=== PATIENT | male | born 1950 | race Caucasian/White ===

== ENCOUNTER 2020-09-26 08:06 | Emergency (ER) | payer MEDICARE, BC, SELFPAY ==
[2020-09-26 08:16] VITALS: BP 140/95; PULSE 121; RESP 16; TEMP 36.7; O2SAT 94; BMI 30.3
--- NOTE | 2020-09-26 08:29 | CT_ITS ---
WS: [id number] CT ABDOMEN AND PELVIS WITH CONTRAST HISTORY: nausea/diarrhea, intermittent abdominal pain TECHNIQUE: Imaging performed of the abdomen and pelvis with IV contrast. Single phase imaging of the abdomen. Coronal and sagittal reformats are submitted. All CT scans at [facility] use at least one of these dose optimization techniques: automated exposure control; mA and/or kV adjustment per patient size (includes targeted exams where dose is matched to clinical indication); or iterativ e reconstruction. IV CONTRAST: Omnipaque 300; 95 mL IV. Oral contrast: No DLP: 1764.72 mGy.cm COMPARISON: None available. Lower thorax: Lung bases are clear. Heart is normal size. Small hiatal hernia. Liver/biliary system: Liver is very mildly enlarged with changes of hepatic steatosis. Hypodense nodu le in the superior liver is probably a small cyst but really too small to characterize. Gallbladder: Numerous stones within a nondilated gallbladder. No adjacent inflammation. No bile duct dilatation. Pancreas: Normal size pancreas and pancreatic duct. No adjacent inflammation. Spleen: Normal size spleen. No mass or infarct. Adrenal glands: Normal. Right kidney: Normal size kidney. 2 cm cyst from the mid kidney. No hydronephrosis. Left kidney: Normal size kidney. Posterior exophytic cyst measures 4.1 cm. There is an additional sma ller cyst in the lower pole cortex. Aorta: Mild atherosclerosis with no aneurysm. Lymphadenopathy: None. Free fluid: None. GI tract: There is diffuse abnormality throughout the colon. Mucosal thickening and hyperemia. There is a more focal area of wall thickening at the junction of the descending colon and sigmoid. No obstr uction. No small bowel dilatation. Abdominal wall: Ventral abdominal wall hernia contains fat only. Pelvis: Nondistended urinary bladder. Diffuse bladder wall thickening. Bladder calcifications are pre sent. There is additional enlargement of the prostate gland with significant calcification. Small nod ular densities in the pelvis may be vessels are very small lymph nodes. Bones: Unremarkable. CT/CT abdomen pelvis w con* [id number] IMPRESSION: 1. Diffuse abnormality throughout the colon. Edema with hyperemia and pericolo ti inflammation which is mild. More focal wall thickening at the descending co cedric and sigmoid. Favor this is probably post infectious or inflammatory. Recomm end colonoscopy after treatment of this acute episode to reevaluate the more fo vale wall thickening in the descending and sigmoid colon. 2. Atherosclerosis aorta. 3. Cholelithiasis without acute cholecystitis. 4. Bilateral renal cysts. 5. Diffuse wall thickening of the urinary bladder and prostate enlargement wit h calcifications.
--- NOTE | 2020-09-26 08:31 | W.ED.NAVMDI ---
HPI - Nausea/Vomiting/Diarrhea General: Chief complaint: Nausea/Vomiting/Diarrhea Stated complaint: abd pain, diarrhea Time Seen by Provider: 09/26/20 08:09 Source: patient Mode of arrival: ambulatory Limitations: no limitations History of Present Illness: HPI Narrative: Patient is a nice 70-year-old male who presents to ED today with a complaint of abdominal pain, nausea, and diarrhea over the past 3 to 4 days. He states when symptoms initially began on Thursday he had 8-9 episodes of diarrhea. He states diarrhea initially appeared dark but over the past few days has turned watery. He is having lower intermittent abdominal cramping. He states he had 3-4 episodes of diarrhea on Thursday. Thursday he felt like he may be improving and states he had 3 episodes throughout the day. States he woke up this morning around 2 AM with several episodes of diarrhea and abdominal pain. Patient is fully vaccinated for COVID. He has not had any vomiting. No fevers. No sick contacts. Previous abdominal surgeries include an appendectomy. MD elicited complaint: nausea, diarrhea and abdominal pain Onset (ago): day(s) (3-4d) Description of diarrhea: watery and semi-solid Associated nausea: Yes Associated abdominal pain: Yes Location of pain: Other (lower) Pain consistency: intermittent Severity: moderate Quality: cramping Exacerbating factors: eating Relieving factors: bowel movement Associated symtoms: Reports nausea; Denies change in vision, chest pain, dysuria, fatigue, fecal incontinence, headache(s) or malaise Review of Systems Const: Reports: change in appetite; Denies: fever(s), chills, body aches, change in weight, fatigue or malaise Eyes: Denies: change in vision ENMT: Denies: throat pain or odynophagia Card: Denies: chest pain Resp: Denies: dyspnea GI: Reports: abdominal pain, nausea, diarrhea and GI cramping; Denies: vomiting, hematemesis, fecal incontinence, rectal pain, rectal swelling, hematochezia, melena or white/light colored stool : Denies: flank pain or dysuria Musc: Denies: back pain Skin/Breast: Denies: rash Neuro: Denies: headache(s) PFS ED PFSH: Social History (Updated 09/26/20 @ 08:21 by Khoi Billingsley RN) Smoking and tobacco status: current every day smoker cigarettes Packs smoked per day: 1 Alcohol intake: current Alcohol intake frequency: 0-2 Drinks per Day Physical Exam Const: COMMON NORMALS: no acute distress, patient oriented x3, no limitations and alert GENERAL APPEARANCE: cooperative NUTRITIONAL APPEARANCE: overweight ORIENTATION/CONSCIOUSNESS: Yes awake, Yes oriented to person, Yes oriented to place and Yes oriented to time HENMT: COMMON NORMALS: normocephalic and atraumatic HEAD & SCALP: normocephalic and atraumatic Resp: COMMON NORMALS: normal respiratory effort and clear to auscultation bilaterally AUSCULTATION: clear to auscultation bilaterally Cardio: COMMON NORMALS: regular rhythm RATE: tachycardic RHYTHM: regular rhythm GI: COMMON NORMALS: Normal to inspection, nondistended, normoactive bowel sounds present, Soft to palpation, No hepatosplenomegaly present and no masses INSPECTION: Yes normal to inspection AUSCULTATION: Yes normoactive bowel sounds PALPATION: Yes Soft to palpation, Yes Tenderness to palpation present (GI) (mild lower abdomen) and Yes No hepatosplenomegaly present : COMMON NORMALS: Yes no CVA tenderness BLADDER/KIDNEY EXAM: Yes no CVA tenderness Back/Pelvis: COMMON NORMALS: no CVA tenderness Extremity: COMMON NORMALS: normal to inspection Neuro: COMMON NORMALS: patient oriented x3 SENSORIUM/ORIENTATION: Yes alert, Yes oriented to person, Yes oriented to place and Yes oriented to time Skin: COMMON NORMALS: no rashes or lesions noted GENERAL SKIN EXAM: no rashes or lesions noted Course Vital Signs: Vital signs: Vital Signs Temperature 98.5 F 09/26/20 09:20 Pulse Rate 99 09/26/20 10:49 Respiratory Rate 16 09/26/20 10:49 Blood Pressure 121/73 09/26/20 10:49 Pulse Oximetry 94 09/26/20 10:49 MDM - Nausea/Vomiting/Diarrhea MDM Narrative: Medical decision making narrative: Patient is nonill and nontoxic appearing. He was initially tachycardic but this has resolved after fluids. Labs overall appear unremarkable. He has a normal white count. CT scan showing diffuse abnormality/edema through his colon. Radiologist did recommend a colonoscopy after treatment of his acute episode. He tells me his last colonoscopy was 2 years ago and normal. Recommend he follow-up with PCP to see if he needs referred to a general surgeon for repeat. CT scan showed cholelithiasis but there was no evidence for acute cholecystitis. His LFTs are normal. CT scan showed some bladder wall thickening as well as an enlarged prostate. UA does show hematuria, trace leuks, 0-4 WBCs. It was contaminated with 10-15 squamous cells. Patient is being placed on pain/nausea medications as well as Cipro and Flagyl for the colitis. Cipro should cover for any urinary infection however I do not have any clinical suspicion for this. Strict return to ED precautions given regarding worsening pain, diarrhea, repetitive episodes of vomiting, inability to hold down antibiotics, or fevers. Otherwise he will follow up with Dr. Burgos. Lab Data: Labs: Lab Results 09/26/20 09/26/20 09/26/20 Range/Units 09:09 09:09 09:19 WBC 4.8 (4.0-10.0) 10^3/ uL RBC 4.66 (4.1-5.3) 10^6/u L Hgb 15.2 (11.7-16.6) g/dL Hct 44.0 (42.0-52.0) % MCV 94.4 H (80-94) fL MCH 32.6 (28.0-34.0) pg MCHC 34.5 (30.0-36.0) g/dL RDW 11.9 L (12.1-15.1) % Plt Count 200 (130-400) 10^3/c mm MPV 9.7 (7.4-10.4) fL Neut % (Auto) 77.5 % Lymph % (Auto) 13.8 % [place] % (Auto) 6.9 % Eos % (Auto) 0.6 % Baso % (Auto) 1.0 % Neut # (Auto) 3.70 (1.8-7.7) 10^3/u L Lymph # (Auto) 0.7 L (0.8-4.8) 10^3/u L [place] # (Auto) 0.3 (0.2-0.9) 10^3/u L Eos # (Auto) 0.0 (0.0-0.8) 10^3/u L Baso # (Auto) 0.1 (0.0-0.1) 10^3/u L Nucleated RBC % (a uto) 0 % Nucleated RBCs # 0.0 /100WBC Sodium 137 (136-145) mmol/L Potassium 4.1 (3.5-5.1) mmol/L Chloride 101 (98-107) mmol/L Carbon Dioxide 22 (22-29) mmol/L Anion Gap 18.1 (5-19) BUN 14 (8-23) mg/dL Creatinine 0.8 (0.7-1.2) mg/dL GFR Calculation Not Reportable Glucose 124 H (65-115) mg/dL Calculated Osmolal ity 286 (285-295) mOsm/k g Calcium 8.4 L (8.5-10.5) mg/dL Total Bilirubin 0.5 (0.15-1.2) mg/dL AST 14 (0-40) U/L ALT 13 (0-41) U/L Alkaline Phosphata se 64 (40-130) IU/L Total Protein 6.7 (6.6-8.7) g/dL Albumin 4.1 (3.5-5.2) g/dL Globulin 2.6 (1.3-4.6) g/dL Lipase 29 (13-60) U/L Urine Color (Yellow) Urine Appearance (CLEAR) Urine pH (5-7) Ur Specific Gravit y (1.005-1.030) Urine Protein (Negative) Urine Glucose (UA) (Normal) Urine Ketones (Negative) Urine Blood (Negative) Urine Nitrate (Negative) Urine Bilirubin (Negative) Urine Urobilinogen (Negative) mg/dL Ur Leukocyte Heather ase (Negative) Urine RBC (0-2) /hpf Urine WBC (0-5) /hpf Ur Squamous Epith Cells (0-5) /hpf Amorphous Sediment Urine Bacteria (NONE) /hpf Urine Mucus /hpf SARS-CoV-2 Ag (Rap id) Negative (Negative) 09/26/20 Range/Units 09:40 WBC (4.0-10.0) 10^3/ uL RBC (4.1-5.3) 10^6/u L Hgb (11.7-16.6) g/dL Hct (42.0-52.0) % MCV (80-94) fL MCH (28.0-34.0) pg MCHC (30.0-36.0) g/dL RDW (12.1-15.1) % Plt Count (130-400) 10^3/c mm MPV (7.4-10.4) fL Neut % (Auto) % Lymph % (Auto) % [place] % (Auto) % Eos % (Auto) % Baso % (Auto) % Neut # (Auto) (1.8-7.7) 10^3/u L Lymph # (Auto) (0.8-4.8) 10^3/u L [place] # (Auto) (0.2-0.9) 10^3/u L Eos # (Auto) (0.0-0.8) 10^3/u L Baso # (Auto) (0.0-0.1) 10^3/u L Nucleated RBC % (a uto) % Nucleated RBCs # /100WBC Sodium (136-145) mmol/L Potassium (3.5-5.1) mmol/L Chloride (98-107) mmol/L Carbon Dioxide (22-29) mmol/L Anion Gap (5-19) BUN (8-23) mg/dL Creatinine (0.7-1.2) mg/dL GFR Calculation Glucose (65-115) mg/dL Calculated Osmolal ity (285-295) mOsm/k g Calcium (8.5-10.5) mg/dL Total Bilirubin (0.15-1.2) mg/dL AST (0-40) U/L ALT (0-41) U/L Alkaline Phosphata se (40-130) IU/L Total Protein (6.6-8.7) g/dL Albumin (3.5-5.2) g/dL Globulin (1.3-4.6) g/dL Lipase (13-60) U/L Urine Color Yellow (Yellow) Urine Appearance Hazy A (CLEAR) Urine pH 5 (5-7) Ur Specific Gravit y 1.020 (1.005-1.030) Urine Protein 1+ H (Negative) Urine Glucose (UA) Norm (Normal) Urine Ketones Negative (Negative) Urine Blood 3+ H (Negative) Urine Nitrate Negative (Negative) Urine Bilirubin 1+ H (Negative) Urine Urobilinogen 1 H (Negative) mg/dL Ur Leukocyte Heather ase Trace H (Negative) Urine RBC 15-25 H (0-2) /hpf Urine WBC 0-4 H (0-5) /hpf Ur Squamous Epith Cells 10-15 H (0-5) /hpf Amorphous Sediment Not Reportable Urine Bacteria 1+ H (NONE) /hpf Urine Mucus 1+ /hpf SARS-CoV-2 Ag (Rap id) (Negative) Imaging Data^: CT Abd/Pel: Radiologist's impression: [address] [id number] Scan ReportSigned Patient: Lloyd Crystal #: [id number]: 9Acct#:[id number]/Sex: 70 / MADM Date: 09/26/20Loc: ERRoom/Bed:Attending Dr: Ordering Provider/Ordering MD: Mariela Alves Date of Service: 09/26/20 Procedure(s): CT abdomen pelvis w con* [id number] Accession Number(s): [id number] Report Number: [id number] WS: [id number] CT ABDOMEN AND PELVIS WITH CONTRAST HISTORY: nausea/diarrhea, intermittent abdominal pain TECHNIQUE: Imaging performed of the abdomen and pelvis with IV contrast. Single phase imaging of the abdomen. Coronal and sagittal reformats are submitted. All CT scans at [facility] use at least one of these dose optimization techniques: automated exposure control; mA and/or kV adjustment per patient size (includes targeted exams where dose is matched to clinical indication); or iterative reconstruction. IV CONTRAST: Omnipaque 300; 95 mL IV. Oral contrast: No DLP: 1764.72 mGy.cm COMPARISON: None available. Lower thorax: Lung bases are clear. Heart is normal size. Small hiatal hernia. Liver/biliary system: Liver is very mildly enlarged with changes of hepatic steatosis. Hypodense nodule in the superior liver is probably a small cyst but really too small to characterize. Gallbladder: Numerous stones within a nondilated gallbladder. No adjacent inflammation. No bile duct dilatation. Pancreas: Normal size pancreas and pancreatic duct. No adjacent inflammation. Spleen: Normal size spleen. No mass or infarct. Adrenal glands: Normal. Right kidney: Normal size kidney. 2 cm cyst from the mid kidney. No hydronephrosis. Left kidney: Normal size kidney. Posterior exophytic cyst measures 4.1 cm. There is an additional smaller cyst in the lower pole cortex. Aorta: Mild atherosclerosis with no aneurysm. Lymphadenopathy: None. Free fluid: None. GI tract: There is diffuse abnormality throughout the colon. Mucosal thickening and hyperemia. There is a more focal area of wall thickening at the junction of the descending colon and sigmoid. No obstruction. No small bowel dilatation. Abdominal wall: Ventral abdominal wall hernia contains fat only. Pelvis: Nondistended urinary bladder. Diffuse bladder wall thickening. Bladder calcifications are present. There is additional enlargement of the prostate gland with significant calcification. Small nodular densities in the pelvis may be vessels are very small lymph nodes. Bones: Unremarkable. CT/CT abdomen pelvis w con* [id number] IMPRESSION: 1. Diffuse abnormality throughout the colon. Edema with hyperemia and pericolonic inflammation which is mild. More focal wall thickening at the descending colon and sigmoid. Favor this is probably post infectious or inflammatory. Recommend colonoscopy after treatment of this acute episode to reevaluate the more focal wall thickening in the descending and sigmoid colon. 2. Atherosclerosis aorta. 3. Cholelithiasis without acute cholecystitis. 4. Bilateral renal cysts. 5. Diffuse wall thickening of the urinary bladder and prostate enlargement with calcifications. Dictated By:Anna Patel DOSigned By:Anna Patel DOSigned Date/Time:09/26/20 1032DD/ 1012 Discharge Plan Discharge Patient Disposition: Home Clinical Impression: Colitis Condition: Stable Prescriptions: New hydrocodone-acetaminophen 5-325 mg tablet 1 tab PO Q6H PRN (Reason: pain) Qty: 14 RF: 0 Zofran 4 mg tablet 4 mg PO Q6H PRN (Reason: nausea and vomiting) Qty: 14 RF: 0 Flagyl 500 mg tablet 500 mg PO BID 7 Days Qty: 14 RF: 0 Cipro 500 mg tablet 500 mg PO Q12H Qty: 14 RF: 0 Discharge Orders: Discharge ED (Routine); Ordered 09/26/20 Ordered By: Mariela Alves Patient Instructions: Infectious Colitis (ED) Activity Restrictions/Additional Instructions: As we discussed you have severe inflammation throughout your colon. Please start your antibiotics immediately. You need to return to the emergency department for worsening pain, fevers greater than 100.4, inability to hold down your antibiotics, repetitive episodes of vomiting, severe bloody diarrhea, or any other concerns you may have. Otherwise please follow-up with Dr. Burgos as soon as possible. Coding Level of Care Code ED Long Goods Drier for Chg Fwd Exam Comprehensive
[2020-09-26 09:15] LABS: Basophils # 0.1 10^3/uL (0.0-0.1); Eosinophils % 0.6 %; Hemoglobin 15.2 g/dL (11.7-16.6); Lymphocytes # 0.7 10^3/uL (0.8-4.8); Lymphocytes % 13.8 %; Mean Corpuscular HGB Conc 34.5 g/dL (30.0-36.0); Mean Corpuscular Hemoglobin 32.6 pg (28.0-34.0); Mean Corpuscular Volume 94.4 fL (80-94); Mean Platelet Volume 9.7 fL (7.4-10.4); Monocytes # 0.3 10^3/uL (0.2-0.9); Monocytes % 6.9 %; Neutrophils % 77.5 %; Nucleated Red Blood Cells % 0 %; Platelet Count 200 10^3/cmm (130-400); Red Blood Count 4.66 10^6/uL (4.1-5.3); Red Cell Distribution Width 11.9 % (12.1-15.1); White Blood Count 4.8 10^3/uL (4.0-10.0)
[2020-09-26 09:20] VITALS: BP 111/61; PULSE 103; RESP 24; TEMP 36.9; O2SAT 95
[2020-09-26 09:44] LABS: Alanine Aminotransferase 13 U/L (0-41); Albumin Level 4.1 g/dL (3.5-5.2); Alkaline Phosphatase 64 IU/L (40-130); Anion Gap 18.1 (5-19); Aspartate Amino Transferase 14 U/L (0-40); Blood Urea Nitrogen 14 mg/dL (8-23); Calcium 8.4 mg/dL (8.5-10.5); Carbon Dioxide 22 mmol/L (22-29); Chloride 101 mmol/L (98-107); Creatinine Clr Calc Pharmacy 105.8609; Globulin 2.6 g/dL (1.3-4.6); Glucose 124 mg/dL (65-115); Lipase 29 U/L (13-60); Osmolality Calculated 286 mOsm/kg (285-295); Potassium 4.1 mmol/L (3.5-5.1); Sodium 137 mmol/L (136-145); Total Bilirubin 0.5 mg/dL (0.15-1.2); Total Protein 6.7 g/dL (6.6-8.7)
[2020-09-26 09:52] LABS: Add Urine Microscopic? YES; Bilirubin Urine 1+ (Negative); Blood Urine 3+ (Negative); Glucose Urine UA Norm (Normal); Ketones Urine Negative (Negative); Leukocyte Esterase Urine Trace (Negative); Nitrate Urine Negative (Negative); Protein Urine 1+ (Negative); Urine Appearance Hazy (CLEAR); Urine Color Yellow (Yellow); Urobilinogen Urine 1 mg/dL (Negative); pH Urine 5 (5-7)
[2020-09-26 09:53] LABS: Add Urine Culture? Yes; Bacteria Urine 1+ /hpf; Mucus Urine 1+ /hpf; RBC Urine 15-25 /hpf (0-2); WBC Urine 0-4 /hpf (0-5)
[2020-09-26] MEDS: sodium chloride 0.9% 1,000 ML 999 ML IV (09:55)
[2020-09-26 09:56] LABS: SARS Covid-2 Antigen Negative (Negative)
[2020-09-26] MEDS: iohexol 300 mg/mL 100 mL Btl IV (10:00)
[2020-09-26 10:49] VITALS: BP 121/73; PULSE 99; RESP 16; O2SAT 94
== END 2020-09-26 11:11 | disposition home or self-care (01) ==
PROVIDERS: Emergency Provider Physician Assistant
DX: K52.9 Noninfective gastroenteritis and colitis, unspecified (principal); F17.210 Nicotine dependence, cigarettes, uncomplicated
CPT/HCPCS: 74177; 80053; 81001; 83690; 85025; 87086; 87426; 96360; 99283; J7030; Q9967

== ENCOUNTER 2020-12-24 09:34 | Outpatient (CLI) | payer MEDICARE, BC, SELFPAY ==
--- NOTE | 2020-12-24 09:50 | XR_ITS ---
WS: [id number] Right forearm, AP and lateral views, 12/24/2020 Clinical Data: R FOREARM PAIN Comparison: None. Findings: No fractures or dislocations are seen. The soft tissues are normal. The visualized right wrist and el bow show no obvious abnormalities. There is an orthopedic plate at the biceps tubercle from surgery. XR/XR forearm RT 2V [id number] Impression: 1. Surgery at the biceps tubercle of the proximal right radius. 2. Negative right forearm.
== END 2020-12-24 09:35 | disposition home or self-care (01) ==
PROVIDERS: PCP Family Medicine; Visit Provider Family Medicine
DX: M79.631 Pain in right forearm (principal)
CPT/HCPCS: 73090

== ENCOUNTER → 2021-02-12 15:46 | Outpatient (BNVA) | payer MEDICARE, BC, SELFPAY | PROVIDERS: PCP Family Medicine; Visit Provider Surgery | DX: Z20.822 Contact with and (suspected) exposure to COVID-19 (principal) | CPT/HCPCS: 87635 ==

== ENCOUNTER 2021-02-14 10:36 | Day surgery (SDC) | payer MEDICARE, BC, SELFPAY ==
[2021-02-12 09:36] VITALS: BMI 30.3
--- NOTE | 2021-02-14 11:13 | ANES.PREANE2 ---
Pre-Anesthetic Assessment Pre-Anesthetic Assessment: Height/Weight: Height 1.85 m Weight 104.326 kg Preop Diagnosis: diagnostic Proposed Procedure: Operation Date: 02/14/21 12:00 Proposed Procedures p Colonoscopy 30601 K52.9(Not Applicable) - Hieu Pino MD Was Beta Jose taken within 24 hours: N/A Was Clonidine taken within 24 hours: N/A Social: Social History: Alcohol and Tobacco Exam: Pre-Anes Outpt Exam: alert, oriented x 3, clear to auscultation bilaterally and regular rate & rhythm Airway: Submandibular: WNL Cervical ROM: WNL MP: 2 Pulmonary: Pulmonary: COPD CV/HEM: CV/HEM: HTN : : None reported Hepatic: Hepatic: None reported GI: GI: GERD Metabolic: Metabolic: Hyperlipidemia and Thyroid Musc/skel: Musc/skel: None reported Neuropsych: Neuropsych: None reported Anesthetic Plan: ASA status: 3 Anesthesia: MAC PFSH Anesthesia PFSH: Medical History (Updated 01/04/21 @ 16:27 by Hieu Pino MD) Diabetes mellitus Dyslipidemia GERD (gastroesophageal reflux disease) Hypertension Hypothyroidism Surgical History (Updated 01/04/21 @ 15:25 by Hieu Pino MD) History of surgery on arm tendon repair Hx of appendectomy Status post colonoscopy Family History (Updated 01/04/21 @ 15:14 by Lucrecia Abarca MA) Other Cancer Social History (Updated 09/26/20 @ 08:21 by Khoi Billingsley RN) Smoking and tobacco status: current every day smoker cigarettes Packs smoked per day: 1 Alcohol intake: current Alcohol intake frequency: 0-2 Drinks per Day Data Anesthesia Cardiac Studies: No Data to Display
[2021-02-14 11:33] VITALS: BP 156/100; PULSE 85; RESP 18; TEMP 36.3; O2SAT 98
[2021-02-14 11:46] VITALS: BP 156/100; PULSE 85; RESP 18; TEMP 36.3; O2SAT 98
[2021-02-14] MEDS: sodium chloride 0.9% 1,000 ML 30 ML IV (11:52)
--- NOTE | 2021-02-14 14:18 | W.PM.OPSFHP ---
Same Day Surgery H&P Indication for Procedure/HPI DATE OF PROCEDURE: February 14, 2021 CHIEF COMPLAINT/INDICATIONFOR SURGICAL PROCEDURE: colonoscopy PREOP DIAGNOSIS: diagnostic PLANNED PROCEDRUE: Operation Date: 02/14/21 12:00 Proposed Procedures p Colonoscopy 07815 K52.9(Not Applicable) - Hieu Pino MD Medications/Allergies* Home Medications Medication Instructions Recorded Confirmed Type fenofibrate 160 mg PO DAILY 02/12/21 02/12/21 History levothyroxine [Synthroid] 150 mcg PO DAILY 02/12/21 02/12/21 History lisinopril 20 mg PO DAILY 02/12/21 02/12/21 History pantoprazole 40 mg PO DAILY 02/12/21 02/12/21 History rosuvastatin 40 mg PO DAILY 02/12/21 02/12/21 History Allergies/Adverse Reactions Allergy/AdvReac Type Severity Reaction Status Date / Time No Known Allergies Allergy Verified 02/14/21 11:45 Current Medications: Generic Name Dose Route Start Last Admin Trade Name Freq PRN Reason Stop Dose Admin Sodium Chloride 1,000 mls @ 30 mls/hr 02/14/21 11:00 02/14/21 11:52 Sodium Chloride 0.9% IV 02/15/21 10:59 30 mls/hr .Q24H KARYN Administration Pertinent History/Comorbid Conditions* Medical History (Updated 01/04/21 @ 16:27 by Hieu Pino MD) Diabetes mellitus Dyslipidemia GERD (gastroesophageal reflux disease) Hypertension Hypothyroidism Surgical History (Updated 01/04/21 @ 15:25 by Hieu Pino MD) History of surgery on arm tendon repair Hx of appendectomy Status post colonoscopy Family History (Updated 01/04/21 @ 15:14 by Lucrecia Abarca MA) Cancer Social History Smoking and tobacco status: current every day smoker cigarettes Packs smoked per day: 1 Alcohol intake: current Alcohol intake frequency: 0-2 Drinks per Day Pertinent Exam Findings alert, oriented x 3 and regular rate & rhythm Recommendations Surgery/Procedure today Coding Level of Care Code Acute Pharmacy Intake Coordinator for Johnnie Rivera
[2021-02-14 14:58] VITALS: BP 112/85; PULSE 82; RESP 16; TEMP 36.4; O2SAT 100
--- NOTE | 2021-02-14 15:00 | ANE.PACU2 ---
Inpatient post-anesthesia follow up: Airway intact: Yes Vital signs: Temperature 97.3 F Pulse Rate 85 Respiratory Rate 18 Blood Pressure 156/100 Pulse Oximetry 98 Oxygen Delivery Me thod Room Air Oxygen Flow Rate Fraction of Inspir ed Oxygen Hydration adequate: Yes Nausea and vomiting: No Pain level: 1 Mental status: Baseline
[2021-02-14 15:11] VITALS: BP 124/76; PULSE 81; RESP 17; O2SAT 97
== END 2021-02-14 15:14 | disposition home or self-care (01) ==
PROVIDERS: PCP Family Medicine; Visit Provider Surgery
PROC: 0DJD8ZZ Inspection of Lower Intestinal Tract, Via Natural or Artificial Opening Endoscopic (ICD-10-PCS; CPT 45378; principal; 2021-02-14 12:00)
DX: Z12.11 Encounter for screening for malignant neoplasm of colon (principal); K57.30 Diverticulosis of large intestine without perforation or abscess without bleeding; K64.8 Other hemorrhoids; J44.9 Chronic obstructive pulmonary disease, unspecified; I10 Essential (primary) hypertension; K21.9 Gastro-esophageal reflux disease without esophagitis; E78.5 Hyperlipidemia, unspecified; E03.9 Hypothyroidism, unspecified; E11.9 Type 2 diabetes mellitus without complications; F17.210 Nicotine dependence, cigarettes, uncomplicated
CPT/HCPCS: 45380; 88305; 96360; J2704; J7030

== ENCOUNTER 2021-03-18 13:43 | Emergency (ER) | payer OTHER, MEDICARE, BC, SELFPAY ==
[2021-03-18 13:59] VITALS: BP 158/82; PULSE 91; RESP 14; O2SAT 95; BMI 29.7
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
[2021-03-18] MEDS: ondansetron 2 mg/ML SDV 2 mL 4 MG IM (15:59)
[2021-03-18] MEDS: morphine 4 mg/mL SDV 1 mL IM (16:00)
[2021-03-18 16:47] VITALS: BP 170/87; PULSE 79; RESP 17; O2SAT 96
--- NOTE | 2021-03-20 10:49 | DCPLANNER ---
integrity manager had message to schedule a follow up appointment for patient with ortho. integrity manager called the ortho clinic, spoke with Mary Alice, gave clinic patients information. integrity manager was told that patients information would be printed and reviewed. Clinic will call patient with appointment information.
--- NOTE | 2021-03-22 07:36 | DCPLANNER ---
Patient had a follow up appointment scheduled for 03.20.[address] at [facility] - patient did attend appointment.
== END 2021-03-18 16:49 | disposition home or self-care (01) ==
PROVIDERS: Emergency Provider Physician Assistant; PCP Family Medicine
DX: S92.001A Unspecified fracture of right calcaneus, initial encounter for closed fracture (principal); E11.9 Type 2 diabetes mellitus without complications; E78.5 Hyperlipidemia, unspecified; I10 Essential (primary) hypertension; F17.210 Nicotine dependence, cigarettes, uncomplicated; V89.2XXA Person injured in unspecified motor-vehicle accident, traffic, initial encounter
CPT/HCPCS: 29515; 73610; 73630; 96372; 99283; J2270; J2405

== ENCOUNTER → 2021-03-20 15:16 | Outpatient (BNVA) | payer MEDICARE, BC, SELFPAY | PROVIDERS: PCP Family Medicine; Referring Provider Family Medicine; Visit Provider Podiatrist Foot & Ankle Surgery | DX: M79.672 Pain in left foot (principal); M19.072 Primary osteoarthritis, left ankle and foot | CPT/HCPCS: 73630 ==

== ENCOUNTER 2021-03-28 09:56 | Outpatient (CLI) | payer OTHER, MEDICARE, BC, SELFPAY ==
--- NOTE | 2021-03-28 10:00 | CT_ITS ---
WS: [id number] NONCONTRAST CT OF THE RIGHT FOOT TECHNIQUE: Noncontrast CT of the right foot with coronal and sagittal reformatted images. CLINICAL INFORMATION: surgical planning COMPARISON: None. DLP: 90.[address] scans at [facility] use at least one of these dose optimization techniques: automated e xposure control; mA and/or kV adjustment per patient size (includes targeted exams where dose is matc hed to clinical indication); or iterative reconstruction. FINDINGS: Noncontrast CT of the right foot. Extensive comminuted fracture involving the calcaneus corresponds t o findings on the recent radiograph. Involvement of the anterior,middle, and posterior subtalar facet . Fracture extends posteriorly to involve the posterior process of the calcaneus. Sustentaculum ramin appears intact. Fracture involves the anterior process of the calcaneus with disruption of the calcan eal cuboid joint. Cuboid appears intact. Talus appears intact. Normal medial and lateral malleolus. N ormal tibiotalar joint. Normal tibial plafond. Base of the fifth metatarsal appears normal. Metatarsa ls appear normal. Normal navicular. Normal cuneiforms. Soft tissue edema. CT/CT foot RT wo con* [id number] IMPRESSION: 1. Extensive comminuted fracture of the calcaneus involving the anterior, midd le and posterior subtalar facets with extension to the posterior process of the calcaneus described above 2. Involvement of the anterior process of the calcaneus with disruption of the calcaneal cuboid joint
== END 2021-03-28 09:57 | disposition home or self-care (01) ==
LOC: RADWPI 10:00
PROVIDERS: PCP Family Medicine; Visit Provider Podiatrist Foot & Ankle Surgery
DX: S92.001A Unspecified fracture of right calcaneus, initial encounter for closed fracture (principal); X58.XXXA Exposure to other specified factors, initial encounter
CPT/HCPCS: 73700

== ENCOUNTER 2021-04-02 14:48 | Outpatient (CLI) | payer OTHER, MEDICARE, BC, SELFPAY | END 2021-04-02 14:49 | disposition home or self-care (01) | LOC: SPT 14:49 | PROVIDERS: PCP Family Medicine; Visit Provider Podiatrist Foot & Ankle Surgery | DX: Z46.89 Encounter for fitting and adjustment of other specified devices (principal); S92.001D Unspecified fracture of right calcaneus, subsequent encounter for fracture with routine healing; X58.XXXD Exposure to other specified factors, subsequent encounter | CPT/HCPCS: 97760; L4361 ==

== ENCOUNTER → 2021-04-16 15:12 | Outpatient (BNVA) | payer BC, MEDICARE, SELFPAY | PROVIDERS: PCP Family Medicine; Visit Provider Podiatrist Foot & Ankle Surgery | DX: S92.001A Unspecified fracture of right calcaneus, initial encounter for closed fracture (principal); X58.XXXA Exposure to other specified factors, initial encounter | CPT/HCPCS: 73650 ==

== ENCOUNTER → 2021-04-30 15:35 | Outpatient (BNVA) | payer MEDICARE, BC, SELFPAY | PROVIDERS: PCP Family Medicine; Visit Provider Podiatrist Foot & Ankle Surgery | DX: S92.001A Unspecified fracture of right calcaneus, initial encounter for closed fracture (principal); X58.XXXA Exposure to other specified factors, initial encounter | CPT/HCPCS: 73650 ==

== ENCOUNTER 2021-05-17 21:23 | Emergency (ER) | payer MEDICARE, BC, SELFPAY ==
[2021-05-17 21:34] VITALS: BP 174/82; PULSE 107; RESP 20; TEMP 37.3; O2SAT 95; BMI 30.3
--- NOTE | 2021-05-17 21:59 | XRR_ITS ---
PROCEDURE INFORMATION: Exam: XR Chest Exam date and time: 05/17/2021 9:59 PM Age: 70 years old Clinical indication: Dyspnea TECHNIQUE: Imaging protocol: XR of the chest. Views: 1 view. COMPARISON: CT abdomen pelvis w con* [id number] 09/26/2020 10:00 AM FINDINGS: Lungs: Mild atelectasis at the lung bases. No consolidative pulmonary infiltrate noted. Pleural spaces: No pleural effusion. No pneumothorax. Heart/Mediastinum: No cardiomegaly demonstrated. Vasculature: Mildly tortuous, atherosclerotic thoracic aorta. Bones/joints: Unremarkable. XR/XR chest 1V portable [id number] IMPRESSION: Mild atelectasis at the lung bases. No consolidative pulmonary infiltrate noted.
--- NOTE | 2021-05-17 21:59 | CTR_ITS ---
PROCEDURE INFORMATION: Exam: CT Abdomen And Pelvis With Contrast Exam date and time: 05/17/2021 9:59 PM Age: 70 years old Clinical indication: Abdominal pain; Localized; Left; Prior surgery; Surgery date: 6+ months; Surgery type: Appy; Patient HX: C/O L sided abd pain x 2 days TECHNIQUE: Imaging protocol: Computed tomography of the abdomen and pelvis with contrast. Radiation optimization: All CT scans at this facility use at least one of these dose optimization techniques: automated exposure control; mA and/or kV adjustment per patient size (includes targeted exams where dose is matched to clinical indication); or iterative reconstruction. Contrast material: OMNI 300; Contrast volume: 95 ml; Contrast route: INTRAVENOUS (IV); COMPARISON: CT abdomen pelvis w con* [id number] 09/26/2020 10:00 AM RADIATION DOSE METRICS: Total DLP (mGy-cm): 1853.05 FINDINGS: Lungs: Mild atelectasis versus infiltrate at the lung bases. Liver: 5 mm simple appearing hepatic cyst. No acute hepatic abnormality. Gallbladder and bile ducts: Multiple gallstones in the gallbladder. There are no secondary signs of cholecystitis. Pancreas: The pancreas is normal in appearance. No pancreatic duct dilatation. Spleen: The spleen is normal in size and appearance. Adrenal glands: The adrenal glands appear within normal limits. Kidneys and ureters: The kidneys are normal in morphology. No hydronephrosis. No solid mass. Bilateral simple appearing renal cysts measuring up to 4 cm in diameter. No solid renal mass. No hydronephrosis. Ureters appear unremarkable. Stomach and bowel: No acute gastric abnormality demonstrated. No acute abnormality/inflammatory change of the colon. Appendix: Postop changes near the cecum, consistent with appendectomy. Intraperitoneal space: No pneumoperitoneum. No significant fluid collection. Vasculature: The aorta is atherosclerotic. No aortic aneurysm. Lymph nodes: Shotty bilateral inguinal lymph nodes measuring up to 1.8 cm in length. Urinary bladder: Mild diffuse mural thickening of the urinary bladder. There is a 7 mm calcification in the dependent portion of the urinary bladder, consistent with a bladder calculus. Reproductive: Enlarged prostate gland. Prostate gland measures 5.3 x 5.7 x 5.2 cm. Bones/joints: No fracture or other acute osseous abnormality. Degenerative spine changes are noted. Soft tissues: The abdominal wall demonstrates a small umbilical hernia, containing only fat. CT/CT abdomen pelvis w con* [id number] IMPRESSION: 1. Multiple gallstones in the gallbladder. There are no secondary signs of cholecystitis. 2. There is a 7 mm calcification in the dependent portion of the urinary bladder, consistent with a bladder calculus. Similar finding noted on 09/26/2020. 3. Enlarged prostate gland. Prostate gland measures 5.3 x 5.7 x 5.2 cm. 4. Mild atelectasis versus infiltrate at the lung bases. This is new when compared to 09/26/2020. 5. No additional new findings when compared to 09/26/2020. COMMENTS: Consistent with the [employer] [employer]'s Incidental Findings Committee white paper (J Am Cee Radiol 2018): Any incidental renal lesion less than 1 cm or classified as too small to characterize, or any incidental cystic renal lesion characterized as simple-appearing, is likely benign. No follow-up imaging is recommended for these lesions per consensus recommendations based on imaging criteria.
--- NOTE | 2021-05-17 22:00 | W.ED.ABDPA2 ---
Documented by User: LUIS Velasquez 05/18/21 00:57 HPI - Abdominal Pain General: Chief Complaint: Abdominal Pain Stated Complaint: Lt Side ABD Pain Time Seen by Provider: 05/17/21 21:58 History of Present Illness: 70-year-old male patient comes in today with complaints of abdominal discomfort. Patient reports for the last 2 days he has had left lower quadrant abdominal pain that radiates into left upper quadrant. Patient reports it feels like it goes up under his rib. Patient's last bowel movement was yesterday morning. Patient does take some pain medication for his calcaneal fracture. Patient does have some concern for a wound infection to his right foot from his calcaneal fracture. Patient reports no fever. Patient denies any nausea vomiting or diarrhea. Patient appears in moderate pain. Patient states he is borderline diabetic. Patient does take medications for hypothyroidism, blood pressure, GERD, and hypercholesteremia. MD elicited complaint: abdominal pain Onset (ago): day(s) Location: LLQ Associated Symptoms: Reports nausea Review of Systems General: Reports: 10 or more systems reviewed and unremarkable except in HPI and below GI: Reports: abdominal pain and nausea PFSH ED PFSH: Medical History Diabetes mellitus Dyslipidemia GERD (gastroesophageal reflux disease) Hypertension Hypothyroidism Surgical History History of surgery on arm tendon repair Hx of appendectomy Status post colonoscopy (02/14/21) Family History Other Cancer Social History Smoking and tobacco status: current every day smoker cigarettes Packs smoked per day: 1 Alcohol intake: current Alcohol intake frequency: 0-2 Drinks per Day Physical Exam Const: COMMON NORMALS: alert HENMT: COMMON NORMALS: atraumatic HEAD & SCALP: atraumatic Eye: COMMON NORMALS: Equal, round and reactive pupils present and EOMs intact bilaterally PUPIL: Yes Equal, round and reactive pupils present Neck/C-Spine: COMMON NORMALS: full ROM Lymph: LYMPHATIC: no lymphadenopathy noted Resp: COMMON NORMALS: normal respiratory effort and clear to auscultation bilaterally AUSCULTATION: clear to auscultation bilaterally Cardio: COMMON NORMALS: regular rate and regular rhythm RATE: regular rate RHYTHM: regular rhythm GI: COMMON NORMALS: Soft to palpation (Mildly distended) AUSCULTATION: Yes Hyperactive bowel sounds present PALPATION: Yes Soft to palpation (Mildly distended) and Yes Tenderness to palpation present (GI) Details: LLQ PERCUSSION: tympanic to percussion Extremity: COMMON NORMALS: normal to inspection Neuro: SENSORIUM/ORIENTATION: Yes alert Psych: COMMON NORMALS: cooperative Skin: COMMON NORMALS: no rashes or lesions noted GENERAL SKIN EXAM: no rashes or lesions noted Course Vital Signs: Vital signs: Vital Signs Temperature 99.1 F 05/17/21 21:34 Pulse Rate 107 H 05/17/21 21:34 Respiratory Rate 20 H 05/17/21 21:34 Blood Pressure 174/82 05/17/21 21:34 Pulse Oximetry 95 05/17/21 21:34 MDM - Abdominal Pain Medical Decision Making Patient comes in tonight with complaints of lower abdominal pain. Patient does report that he has some pain that radiates up into his upper left abdomen. On exam patient's abdomen slightly distended, bowel sounds are hyperactive, skin is warm and dry, vital signs have some elevation in blood pressure the pulse rate. No fever. Skin is warm and dry turgor is normal. Posterior pharynx is normal. Respirations are even lungs are decreased in the bases. Differential diagnosis includes ileus, constipation, diverticulitis, adverse drug effect. Patient had recently come off some antibiotics due to gastric distress. Patient felt better for a day but now the symptoms are returning. CBC was unremarkable. CMP was unremarkable. Troponin was 27 and was unchanged at 2 hours. Patient was given 1 hydrocodone which relieved his pain. I believe patient probably has some gastric distress due to his antibiotic use. Patient was also almost out of his hydrocodone so this may be related to needing refill for his hydrocodone to get him through the weekend until he can follow-up with his care provider on Thursday. CT scan did note some gallstones without any signs of infection so gallbladder colic might be another possibility. I recommended follow-up with primary care regarding the abnormalities on the CT scan and continue routine treatment with waiter/waitress cafeteria regarding his chronic wounds to his right foot. Patient agreed to plan and will monitor for fever return as needed. Lab Data : 05/17/21 22:05 05/17/21 22:05 Labs/Radiology: Radiology Impressions Abdomen/Pelvis CT 05/17/21 21:59 IMPRESSION: 1. Multiple gallstones in the gallbladder. There are no secondary signs of cholecystitis. 2. There is a 7 mm calcification in the dependent portion of the urinary bladder, consistent with a bladder calculus. Similar finding noted on 09/26/2020. 3. Enlarged prostate gland. Prostate gland measures 5.3 x 5.7 x 5.2 cm. 4. Mild atelectasis versus infiltrate at the lung bases. This is new when compared to 09/26/2020. 5. No additional new findings when compared to 09/26/2020. COMMENTS: Consistent with the [employer]'s Incidental Findings Committee white paper (J Am Cee Radiol 2018): Any incidental renal lesion less than 1 cm or classified as too small to characterize, or any incidental cystic renal lesion characterized as simple-appearing, is likely benign. No follow-up imaging is recommended for these lesions per consensus recommendations based on imaging criteria. Chest X-Ray 05/17/21 21:59 IMPRESSION: Mild atelectasis at the lung bases. No consolidative pulmonary infiltrate noted. Laboratory Results WBC 7.8 10^3/uL (4.0-10.0) 05/17/21 22:05 RBC 4.37 10^6/uL (4.1-5.3) 05/17/21 22:05 Hgb 14.4 g/dL (11.7-16.6) 05/17/21 22:05 Hct 41.5 % (42.0-52.0) L 05/17/21 22:05 MCV 95.0 fl (80-94) H 05/17/21 22:05 MCH 33.0 pg (28.0-34.0) 05/17/21 22:05 MCHC 34.7 g/dL (30.0-36.0) 05/17/21 22:05 RDW 11.8 % (12.1-15.1) L 05/17/21 22:05 Plt Count 230 10^3/cmm (130-400) 05/17/21 22:05 MPV 9.9 fL (7.4-10.4) 05/17/21 22:05 Neut % (Auto) 71.5 % 05/17/21 22:05 Lymph % (Auto) 19.1 % 05/17/21 22:05 [place] % (Auto) 7.5 % 05/17/21 22:05 Eos % (Auto) 1.0 % 05/17/21 22:05 Baso % (Auto) 0.5 % 05/17/21 22:05 Neut # (Auto) 5.54 10^3/uL (1.8-7.7) 05/17/21 22:05 Lymph # (Auto) 1.5 10^3/uL (0.8-4.8) 05/17/21 22:05 [place] # (Auto) 0.6 10^3/uL (0.2-0.9) 05/17/21 22:05 Eos # (Auto) 0.1 10^3/uL (0.0-0.8) 05/17/21 22:05 Baso # (Auto) 0.0 10^3/uL (0.0-0.1) 05/17/21 22:05 Nucleated RBC % (auto) 0 % 05/17/21 22:05 Nucleated RBCs # 0.0 /100WBC 05/17/21 22:05 Sodium 137 mmol/L (136-145) 05/17/21 22:05 Potassium 4.1 mmol/L (3.5-5.1) 05/17/21 22:05 Chloride 99 mmol/L (98-107) 05/17/21 22:05 Carbon Dioxide 27 mmol/L (22-29) 05/17/21 22:05 Anion Gap 15.1 (5-19) 05/17/21 22:05 BUN 15 mg/dL (8-23) 05/17/21 22:05 Creatinine 0.9 mg/dL (0.7-1.2) 05/17/21 22:05 GFR Calculation Not Reportable 05/17/21 22:05 Glucose 156 mg/dL (65-115) H 05/17/21 22:05 Calculated Osmolality 288 mOsm/kg (285-295) 05/17/21 22:05 Lactic Acid 1.7 mmol/L (0.5-2.2) 05/17/21 21:50 Calcium 9.2 mg/dL (8.5-10.5) 05/17/21 22:05 Total Bilirubin 0.7 mg/dL (0.15-1.2) 05/17/21 22:05 AST 12 U/L (0-40) 05/17/21 22:05 ALT 12 U/L (0-41) 05/17/21 22:05 Alkaline Phosphatase 92 IU/L (40-130) 05/17/21 22:05 Troponin T Baseline 27 ng/L (0-15) H 05/17/21 22:05 Troponin T 120 Minute 27.44 ng/L (0-15) H 05/18/21 00:00 Delta Troponin T 0.44 ABS# (0-10) 05/18/21 00:00 Total Protein 7.1 g/dL (6.6-8.7) 05/17/21 22:05 Albumin 4.6 g/dL (3.5-5.2) 05/17/21 22:05 Globulin 2.5 g/dL (1.3-4.6) 05/17/21 22:05 Lipase 42 U/L (13-60) 05/17/21 22:05 Urine Color Yellow (Yellow) 05/17/21 23:04 Urine Appearance Clear (CLEAR) 05/17/21 23:04 Urine pH 5 (5-7) 05/17/21 23:04 Ur Specific [place] 1.025 (1.005-1.030) 05/17/21 23:04 Urine Protein Neg (Negative) 05/17/21 23:04 Urine Glucose (UA) Norm (Normal) 05/17/21 23:04 Urine Ketones 1+ (Negative) H 05/17/21 23:04 Urine Blood Neg (Negative) 05/17/21 23:04 Urine Nitrate Negative (Negative) 05/17/21 23:04 Urine Bilirubin Neg (Negative) 05/17/21 23:04 Urine Urobilinogen 1 mg/dL (Negative) H 05/17/21 23:04 Ur Leukocyte Esterase Trace (Negative) H 05/17/21 23:04 Urine RBC 0-4 /hpf (0-2) H 05/17/21 23:04 Urine WBC 5-10 /hpf (0-5) H 05/17/21 23:04 Ur Squamous Epith Cells 0-4 /hpf (0-5) H 05/17/21 23:04 Calcium Oxalate Crystal 10-15 /hpf H 05/17/21 23:04 Amorphous Sediment Not Reportable 05/17/21 23:04 Urine Bacteria Trace /hpf (NONE) 05/17/21 23:04 Hyaline Casts 0-4 /lpf H 05/17/21 23:04 Urine Mucus Trace /hpf 05/17/21 23:04 EKG Data EKG 1: EKG interpretation date: 05/17/21 EKG interpretation time: 22:19 Interpretation: EKG shows a regular rhythm at 97 bpm, patient has some ST wave abnormalities in 1, aVL, V5, V6, 2 and aVF. No ectopy otherwise is noted. Prior exam is not available for comparison at this time. Discharge Plan Discharge Patient Disposition: Home Clinical Impression: Abdominal pain Condition: Stable Prescriptions: Continued hydrocodone-acetaminophen 5-325 mg tablet 1 tab PO Q6H PRN (Reason: pain) 7 Days Qty: 12 0RF Discontinued hydrocodone-acetaminophen 10-325 mg tablet 1 tab PO Q6H PRN (Reason: pain) 7 Days Qty: 28 0RF hydrocodone-acetaminophen 5-325 mg tablet 1 tab PO Q6H PRN (Reason: pain) 7 Days Qty: 28 0RF hydrocodone-acetaminophen 5-325 mg tablet 1 tab PO Q4H PRN (Reason: pain) Qty: 15 0RF No Action terbinafine HCl 250 mg tablet 250 mg PO DAILY 14 Days Qty: 14 0RF (DME) Cam boot See Rx Instructions .Route .MEDSUPPLY Qty: 1 0RF Rx Instructions: As directed (DME) Wheel chair with foot rests See Rx Instructions .Route .MEDSUPPLY Qty: 1 0RF Rx Instructions: As directed ciprofloxacin HCl 500 mg tablet 500 mg PO BID 7 Days Qty: 14 0RF clindamycin HCl 300 mg capsule 300 mg PO TID 7 Days Qty: 21 0RF triamcinolone acetonide 0.1 % cream 1 applic topical TID Qty: 80 2RF lisinopril 20 mg tablet 20 mg PO DAILY 0RF pantoprazole 40 mg tablet,delayed release (DR/EC) 40 mg PO DAILY 0RF levothyroxine [Synthroid] 150 mcg tablet 150 mcg PO DAILY 0RF rosuvastatin 40 mg tablet 40 mg PO DAILY 0RF fenofibrate 160 mg tablet 160 mg PO DAILY 0RF Discharge Orders: Discharge ED (Routine); Ordered 05/18/21 Ordered By: Ish Jalloh Referrals: Mayur Burgos MD [Primary Care Provider] - Discharge Diet: Usual diet Discharge Activity: Increase activity as tolerated Patient Instructions: Abdominal Pain (ED), Opioid Safety Activity Restrictions/Additional Instructions: Activity as tolerated. Drink plenty of water and fluids. Monitor for a fever greater than 100.4. Eat a healthy diet with plenty of protein and fresh fruits and vegetables. Increase activity as tolerated. Follow-up with primary care for further instruction. Return to ER for worsening symptoms or new concerns. Coding Level of Care Code ED Precision Devices Inspector/Tester for Chg Fwd Exam Comprehensive Documented by User: Avtar Cantu DO 05/18/21 02:08 HPI - Abdominal Pain General: Chief Complaint: Abdominal Pain Stated Complaint: Lt Side ABD Pain Time Seen by Provider: 05/17/21 21:58 PFSH ED PFSH: Medical History Diabetes mellitus Dyslipidemia GERD (gastroesophageal reflux disease) Hypertension Hypothyroidism Surgical History History of surgery on arm tendon repair Hx of appendectomy Status post colonoscopy (02/14/21) Family History Other Cancer Social History Smoking and tobacco status: current every day smoker cigarettes Packs smoked per day: 1 Alcohol intake: current Alcohol intake frequency: 0-2 Drinks per Day Course Vital Signs: Vital signs: Vital Signs Temperature 99.1 F 05/17/21 21:34 Pulse Rate 107 H 05/17/21 21:34 Respiratory Rate 20 H 05/17/21 21:34 Blood Pressure 174/82 05/17/21 21:34 Pulse Oximetry 95 05/17/21 21:34 MDM - Abdominal Pain Medical Decision Making Patient comes in tonight with complaints of lower abdominal pain. Patient does report that he has some pain that radiates up into his upper left abdomen. On exam patient's abdomen slightly distended, bowel sounds are hyperactive, skin is warm and dry, vital signs have some elevation in blood pressure the pulse rate. No fever. Skin is warm and dry turgor is normal. Posterior pharynx is normal. Respirations are even lungs are decreased in the bases. Differential diagnosis includes ileus, constipation, diverticulitis, adverse drug effect. Patient had recently come off some antibiotics due to gastric distress. Patient felt better for a day but now the symptoms are returning. CBC was unremarkable. CMP was unremarkable. Troponin was 27 and was unchanged at 2 hours. Patient was given 1 hydrocodone which relieved his pain. I believe patient probably has some gastric distress due to his antibiotic use. Patient was also almost out of his hydrocodone so this may be related to needing refill for his hydrocodone to get him through the weekend until he can follow-up with his care provider on Thursday. CT scan did note some gallstones without any signs of infection so gallbladder colic might be another possibility. I recommended follow-up with primary care regarding the abnormalities on the CT scan and continue routine treatment with waiter/waitress cafeteria regarding his chronic wounds to his right foot. Patient agreed to plan and will monitor for fever return as needed. This patient was originally seen by LUIS Mojica.? I agree with his history, evaluation, and treatment. Lab Data : 05/17/21 22:05 05/17/21 22:05 Labs/Radiology: Radiology Impressions Abdomen/Pelvis CT 05/17/21 21:59 IMPRESSION: 1. Multiple gallstones in the gallbladder. There are no secondary signs of cholecystitis. 2. There is a 7 mm calcification in the dependent portion of the urinary bladder, consistent with a bladder calculus. Similar finding noted on 09/26/2020. 3. Enlarged prostate gland. Prostate gland measures 5.3 x 5.7 x 5.2 cm. 4. Mild atelectasis versus infiltrate at the lung bases. This is new when compared to 09/26/2020. 5. No additional new findings when compared to 09/26/2020. COMMENTS: Consistent with the [employer]'s Incidental Findings Committee white paper (J Am Cee Radiol 2018): Any incidental renal lesion less than 1 cm or classified as too small to characterize, or any incidental cystic renal lesion characterized as simple-appearing, is likely benign. No follow-up imaging is recommended for these lesions per consensus recommendations based on imaging criteria. Chest X-Ray 05/17/21 21:59 IMPRESSION: Mild atelectasis at the lung bases. No consolidative pulmonary infiltrate noted. Laboratory Results WBC 7.8 10^3/uL (4.0-10.0) 05/17/21 22:05 RBC 4.37 10^6/uL (4.1-5.3) 05/17/21 22:05 Hgb 14.4 g/dL (11.7-16.6) 05/17/21 22:05 Hct 41.5 % (42.0-52.0) L 05/17/21:05 MCV 95.0 fl (80-94) H 05/17/21 22: MCH 33.0 pg (28.0-34.0) 05/17/21: MCHC 34.7 g/dL (30.0-36.0) 05/17/21 22:05 RDW 11.8 % (12.1-15.1) L 05/17/21 22:05 Plt Count 230 10^3/cmm (130-400) 05/17/21 22:05 MPV 9.9 fL (7.4-10.4) 05/17/21 22:05 Neut % (Auto) 71.5 % 05/17/21 22:05 Lymph % (Auto) 19.1 % 05/17/21 22:05 [place] % (Auto) 7.5 % 05/17/21 22:05 Eos % (Auto) 1.0 % 05/17/21 22:05 Baso % (Auto) 0.5 % 05/17/21 22:05 Neut # (Auto) 5.54 10^3/uL (1.8-7.7) 05/17/21: Lymph # (Auto) 1.5 10^3/uL (0.8-4.8) 05/17/21 22:05 [place] # (Auto) 0.6 10^3/uL (0.2-0.9) 05/17/21 22:05 Eos # (Auto) 0.1 10^3/uL (0.0-0.8) 05/17/21 22:05 Baso # (Auto) 0.0 10^3/uL (0.0-0.1) 05/17/21 22:05 Nucleated RBC % (auto) 0 % 05/17/21 22:05 Nucleated RBCs # 0.0 /100WBC 05/17/21 22:05 Sodium 137 mmol/L (136-145) 05/17/21 22:05 Potassium 4.1 mmol/L (3.5-5.1) 05/17/21 22:05 Chloride 99 mmol/L (98-107) 05/17/21 22:05 Carbon Dioxide 27 mmol/L (22-29) 05/17/21 22:05 Anion Gap 15.1 (5-19) 05/17/21 22:05 BUN 15 mg/dL (8-23) 05/17/21 22:05 Creatinine 0.9 mg/dL (0.7-1.2) 05/17/21 22:05 GFR Calculation Not Reportable 05/17/21 22:05 Glucose 156 mg/dL (65-115) H 05/17/21 22:05 Calculated Osmolality 288 mOsm/kg (285-295) 05/17/21 22:05 Lactic Acid 1.7 mmol/L (0.5-2.2) 05/17/21 21:50 Calcium 9.2 mg/dL (8.5-10.5) 05/17/21 22:05 Total Bilirubin 0.7 mg/dL (0.15-1.2) 05/17/21 22:05 AST 12 U/L (0-40) 05/17/21 22:05 ALT 12 U/L (0-41) 05/17/21 22:05 Alkaline Phosphatase 92 IU/L (40-130) 05/17/21 22:05 Troponin T Baseline 27 ng/L (0-15) H 05/17/21 22:05 Troponin T 120 Minute 27.44 ng/L (0-15) H 05/18/21 00:00 Delta Troponin T 0.44 ABS# (0-10) 05/18/21 00:00 Total Protein 7.1 g/dL (6.6-8.7) 05/17/21 22:05 Albumin 4.6 g/dL (3.5-5.2) 05/17/21 22:05 Globulin 2.5 g/dL (1.3-4.6) 05/17/21 22:05 Lipase 42 U/L (13-60) 05/17/21 22:05 Urine Color Yellow (Yellow) 05/17/21 23:04 Urine Appearance Clear (CLEAR) 05/17/21 23:04 Urine pH 5 (5-7) 05/17/21 23:04 Ur Specific [place] 1.025 (1.005-1.030) 05/17/21 23:04 Urine Protein Neg (Negative) 05/17/21 23:04 Urine Glucose (UA) Norm (Normal) 05/17/21 23:04 Urine Ketones 1+ (Negative) H 05/17/21 23:04 Urine Blood Neg (Negative) 05/17/21 23:04 Urine Nitrate Negative (Negative) 05/17/21 23:04 Urine Bilirubin Neg (Negative) 05/17/21 23:04 Urine Urobilinogen 1 mg/dL (Negative) H 05/17/21 23:04 Ur Leukocyte Esterase Trace (Negative) H 05/17/21 23:04 Urine RBC 0-4 /hpf (0-2) H 05/17/21 23:04 Urine WBC 5-10 /hpf (0-5) H 05/17/21 23:04 Ur Squamous Epith Cells 0-4 /hpf (0-5) H 05/17/21 23:04 Calcium Oxalate Crystal 10-15 /hpf H 05/17/21 23:04 Amorphous Sediment Not Reportable 05/17/21 23:04 Urine Bacteria Trace /hpf (NONE) 05/17/21 23:04 Hyaline Casts 0-4 /lpf H 05/17/21 23:04 Urine Mucus Trace /hpf 05/17/21 23:04 Discharge Plan Discharge Patient Disposition: Home Clinical Impression: Abdominal pain Condition: Stable Prescriptions: Continued hydrocodone-acetaminophen 5-325 mg tablet 1 tab PO Q6H PRN (Reason: pain) 7 Days Qty: 12 0RF Discontinued hydrocodone-acetaminophen 10-325 mg tablet 1 tab PO Q6H PRN (Reason: pain) 7 Days Qty: 28 0RF hydrocodone-acetaminophen 5-325 mg tablet 1 tab PO Q6H PRN (Reason: pain) 7 Days Qty: 28 0RF hydrocodone-acetaminophen 5-325 mg tablet 1 tab PO Q4H PRN (Reason: pain) Qty: 15 0RF No Action terbinafine HCl 250 mg tablet 250 mg PO DAILY 14 Days Qty: 14 0RF (DME) Cam boot See Rx Instructions .Route .MEDSUPPLY Qty: 1 0RF Rx Instructions: As directed (DME) Wheel chair with foot rests See Rx Instructions .Route .MEDSUPPLY Qty: 1 0RF Rx Instructions: As directed ciprofloxacin HCl 500 mg tablet 500 mg PO BID 7 Days Qty: 14 0RF clindamycin HCl 300 mg capsule 300 mg PO TID 7 Days Qty: 21 0RF triamcinolone acetonide 0.1 % cream 1 applic topical TID Qty: 80 2RF lisinopril 20 mg tablet 20 mg PO DAILY 0RF pantoprazole 40 mg tablet,delayed release (DR/EC) 40 mg PO DAILY 0RF levothyroxine [Synthroid] 150 mcg tablet 150 mcg PO DAILY 0RF rosuvastatin 40 mg tablet 40 mg PO DAILY 0RF fenofibrate 160 mg tablet 160 mg PO DAILY 0RF Discharge Orders: Discharge ED (Routine); Ordered 05/18/21 Ordered By: Ish Jalloh Referrals: Mayur Burgos MD [Primary Care Provider] - Discharge Diet: Usual diet Discharge Activity: Increase activity as tolerated Patient Instructions: Abdominal Pain (ED), Opioid Safety Activity Restrictions/Additional Instructions: Activity as tolerated. Drink plenty of water and fluids. Monitor for a fever greater than 100.4. Eat a healthy diet with plenty of protein and fresh fruits and vegetables. Increase activity as tolerated. Follow-up with primary care for further instruction. Return to ER for worsening symptoms or new concerns. Coding Level of Care Code ED Precision Devices Inspector/Tester for Johnnie Fwd Exam Comprehensive
[2021-05-17 22:14] LABS: Basophils % 0.5 %; Eosinophils # 0.1 10^3/uL (0.0-0.8); Hematocrit 41.5 % (42.0-52.0); Hemoglobin 14.4 g/dL (11.7-16.6); Lymphocytes # 1.5 10^3/uL (0.8-4.8); Lymphocytes % 19.1 %; Mean Corpuscular HGB Conc 34.7 g/dL (30.0-36.0); Mean Platelet Volume 9.9 fL (7.4-10.4); Monocytes # 0.6 10^3/uL (0.2-0.9); Monocytes % 7.5 %; Neutrophils # 5.54 10^3/uL (1.8-7.7); Neutrophils % 71.5 %; Nucleated Red Blood Cells % 0 %; Platelet Count 230 10^3/cmm (130-400); Red Blood Count 4.37 10^6/uL (4.1-5.3); Red Cell Distribution Width 11.8 % (12.1-15.1); White Blood Count 7.8 10^3/uL (4.0-10.0)
[2021-05-17] MEDS: ondansetron 2 mg/ML SDV 2 mL 4 MG IVP (22:24)
[2021-05-17] MEDS: sodium chloride 0.9% 500 ML 999 ML IV (22:24)
[2021-05-17 22:37] LABS: Alanine Aminotransferase 12 U/L (0-41); Albumin Level 4.6 g/dL (3.5-5.2); Alkaline Phosphatase 92 IU/L (40-130); Anion Gap 15.1 (5-19); Aspartate Amino Transferase 12 U/L (0-40); Blood Urea Nitrogen 15 mg/dL (8-23); Calcium 9.2 mg/dL (8.5-10.5); Carbon Dioxide 27 mmol/L (22-29); Chloride 99 mmol/L (98-107); Globulin 2.5 g/dL (1.3-4.6); Glucose 156 mg/dL (65-115); Lipase 42 U/L (13-60); Osmolality Calculated 288 mOsm/kg (285-295); Potassium 4.1 mmol/L (3.5-5.1); Sodium 137 mmol/L (136-145); Total Bilirubin 0.7 mg/dL (0.15-1.2); Total Protein 7.1 g/dL (6.6-8.7)
[2021-05-17 22:39] LABS: Troponin(5th) Baseline 27 ng/L (0-15)
[2021-05-17 22:45] LABS: Lactic Sepsis W/Reflex 1.7 mmol/L (0.5-2.2)
[2021-05-17] MEDS: iohexol 300 mg/mL 100 mL Btl IV (22:51)
[2021-05-18] MEDS: HYDROcodone-acetaminophen 10-325 mg Tablet 1 TAB PO (00:03)
[2021-05-18 00:08] LABS: Add Urine Microscopic? YES; Bilirubin Urine Neg (Negative); Blood Urine Neg (Negative); Glucose Urine UA Norm (Normal); Ketones Urine 1+ (Negative); Leukocyte Esterase Urine Trace (Negative); Nitrate Urine Negative (Negative); Protein Urine Neg (Negative); Specific Gravity, Urine 1.025 (1.005-1.030); Urine Appearance Clear (CLEAR); Urine Color Yellow (Yellow); Urobilinogen Urine 1 mg/dL (Negative); pH Urine 5 (5-7)
[2021-05-18 00:14] LABS: Add Urine Culture? No; Bacteria Urine TRACE /hpf; Hyaline Casts Urine 0-4 /lpf; Mucus Urine TRACE /hpf; RBC Urine 0-4 /hpf (0-2); Squamous Epithelial Cell Urine 0-4 /hpf (0-5)
[2021-05-18 00:33] LABS: Troponin 5 2HR 27.44 ng/L (0-15)
[2021-05-18 00:35] LABS: Troponin 5 2HR Delta 0.44 ABS# (0-10)
--- NOTE | 2021-05-18 00:43 | PC.NURSE ---
Pt. states that he feels bloated and feels like he has a lot of gas.
== END 2021-05-18 01:20 | disposition home or self-care (01) ==
PROVIDERS: Emergency Provider Nurse Practitioner Family; PCP Family Medicine
DX: R10.9 Unspecified abdominal pain (principal); E11.9 Type 2 diabetes mellitus without complications; E78.5 Hyperlipidemia, unspecified; I10 Essential (primary) hypertension; F17.210 Nicotine dependence, cigarettes, uncomplicated
CPT/HCPCS: 71045; 74177; 80053; 81001; 83605; 83690; 84484; 85025; 87040; 96374; 99284; J2405; J7040; Q9967

== ENCOUNTER → 2021-05-20 15:24 | Outpatient (BNVA) | payer MEDICARE, OTHER, SELFPAY | PROVIDERS: PCP Family Medicine; Visit Provider Podiatrist Foot & Ankle Surgery | DX: S92.001A Unspecified fracture of right calcaneus, initial encounter for closed fracture (principal); V89.2XXA Person injured in unspecified motor-vehicle accident, traffic, initial encounter | CPT/HCPCS: 73650 ==

== ENCOUNTER → 2021-06-05 15:52 | Outpatient (BNVA) | payer MEDICARE, BC, SELFPAY | PROVIDERS: PCP Family Medicine; Visit Provider Podiatrist Foot & Ankle Surgery | DX: S92.001A Unspecified fracture of right calcaneus, initial encounter for closed fracture (principal); X58.XXXA Exposure to other specified factors, initial encounter | CPT/HCPCS: 73650 ==

== ENCOUNTER → 2021-07-09 15:18 | Outpatient (BNVA) | payer MEDICARE, BC, SELFPAY | PROVIDERS: PCP Family Medicine; Visit Provider Podiatrist Foot & Ankle Surgery | DX: S92.011D Displaced fracture of body of right calcaneus, subsequent encounter for fracture with routine healing (principal); V89.2XXA Person injured in unspecified motor-vehicle accident, traffic, initial encounter; B35.3 Tinea pedis; M10.9 Gout, unspecified; F17.210 Nicotine dependence, cigarettes, uncomplicated | CPT/HCPCS: 73650; 99213; 99215 ==

== ENCOUNTER → 2021-08-26 15:01 | Outpatient (BNVA) | payer MEDICARE, BC, SELFPAY | PROVIDERS: PCP Family Medicine; Visit Provider Family Medicine | DX: E03.9 Hypothyroidism, unspecified (principal); I10 Essential (primary) hypertension; E11.8 Type 2 diabetes mellitus with unspecified complications; Z13.220 Encounter for screening for lipoid disorders; Z12.5 Encounter for screening for malignant neoplasm of prostate | CPT/HCPCS: 80053; 80061; 83036; 84153; 84439; 84443; 85025 ==

== ENCOUNTER → 2022-02-24 09:46 | Outpatient (BNVA) | payer MEDICARE, BC, SELFPAY | PROVIDERS: PCP Family Medicine; Visit Provider Family Medicine | DX: E03.9 Hypothyroidism, unspecified (principal); E11.9 Type 2 diabetes mellitus without complications; Z12.5 Encounter for screening for malignant neoplasm of prostate | CPT/HCPCS: 80061; 83036; 84439; 84443; 85025 ==

== ENCOUNTER 2022-02-25 15:28 | Outpatient (CLI) | payer MEDICARE, BC, SELFPAY ==
--- NOTE | 2022-02-25 15:38 | XR_ITS ---
WS: [id number] RIGHT SHOULDER: 3 VIEW(S) TECHNIQUE: Internal and external rotation with Y view. HISTORY: Pain after fall 6 months ago. COMPARISON: None available. No fracture or dislocation or soft tissue abnormality. Glenohumeral and AC joints are unremarkable. XR/XR shoulder RT min 2V* [id number] IMPRESSION: Normal RIGHT shoulder.
== END 2022-02-25 15:29 | disposition home or self-care (01) ==
LOC: RAD 15:31
PROVIDERS: PCP Family Medicine; Visit Provider Family Medicine
DX: M25.511 Pain in right shoulder (principal)
CPT/HCPCS: 73030

== ENCOUNTER → 2022-07-22 13:02 | Outpatient (BNVA) | payer MEDICARE, SELFPAY | PROVIDERS: PCP Family Medicine; Visit Provider Podiatrist Foot & Ankle Surgery | DX: S92.001A Unspecified fracture of right calcaneus, initial encounter for closed fracture (principal); V89.2XXA Person injured in unspecified motor-vehicle accident, traffic, initial encounter; B35.3 Tinea pedis; M10.9 Gout, unspecified | CPT/HCPCS: 99213 ==

== ENCOUNTER → 2022-08-20 08:52 | Outpatient (BNVA) | payer MEDICARE, SELFPAY | PROVIDERS: PCP Family Medicine; Visit Provider Family Medicine | DX: I10 Essential (primary) hypertension (principal); E03.9 Hypothyroidism, unspecified; I49.9 Cardiac arrhythmia, unspecified; R01.1 Cardiac murmur, unspecified; R42 Dizziness and giddiness; I44.7 Left bundle-branch block, unspecified; R73.03 Prediabetes; M25.511 Pain in right shoulder; Z51.81 Encounter for therapeutic drug level monitoring; R35.0 Frequency of micturition; E11.9 Type 2 diabetes mellitus without complications; Z13.220 Encounter for screening for lipoid disorders | CPT/HCPCS: 80053; 80061; 83036; 83735; 84153; 84439; 84443; 85025 ==

== ENCOUNTER 2022-09-05 10:34 | Outpatient (CLI) | payer MEDICARE, OTHER, SELFPAY ==
--- NOTE | 2022-09-05 11:00 | USCV_ITS ---
Robin Crystal Age: 72 Gender: M : 1950 Exam Date: 09/05/2022 11:40 Ordering Phys: Mayur Burgos MD Technologist: Exam Location: [facility] – [place] Indication: chest pain BP: 145 / 85 HR: Rhythm: Sinus Technical Quality: Adequate MEASUREMENTS (Male / Female) Normal Values 2D ECHO LV Diastolic Diameter PLAX 5.3 cm 4.2 - 5.9 / 3.9 - 5.3 cm LV Systolic Diameter PLAX 3.4 cm IVS Diastolic Thickness 1.3 cm 0.6 - 1.0 / 0.6 - 0.9 cm IVS Systolic Thickness 1.3 cm LVPW Diastolic Thickness 1.5 cm 0.6 - 1.0 / 0.6 - 0.9 cm LVPW Systolic Thickness 1.6 cm LVOT Diameter 2.1 cm LV Ejection Fraction 2D Teich 64.7 % LV Ejection Fraction MOD 2C 66.2 % LV Ejection Fraction 2C AL 68.0 % LA Diameter 3.7 cm M-MODE Aortic Annulus Diameter 3.8 cm LA Ao Ratio MM 1.1 MV E Point Septal Separation 0.9 cm DOPPLER AV Peak Velocity 181.0 cm/s LVOT Peak Velocity 93.0 cm/s AV Area Cont Eq vti 2.2 cm squared AV Area Cont Eq pk 1.8 cm squared MV Area PHT 6.3 cm squared Mitral E to A Ratio 0.6 MV E' Velocity 41.0 cm/s Mitral E to MV E' Ratio 14.6 Mitral E to LV E' Lateral Ratio 13.1 Mitral E to LV E' Septal Ratio 16.5 TR Peak Velocity 215.0 cm/s TR Peak Gradient 18.5 mmHg TV Peak E Velocity 78.0 cm/s Right Atrial Pressure 3.0 mmHg Pulmonary Artery Systolic Pressu 21.5 mmHg RV Acceleration Time 0.1 s FINDINGS Left Ventricle Normal left ventricular size, systolic function and wall thickness, with no regional wall motion abnormalities. Left ventricular ejection fraction is estimated at 60 %. Grade I diastolic dysfunction (abnormal relaxation filling pattern), normal to mildly elevated filling pressures. Right Ventricle Normal right ventricular size and systolic function. Right ventricular systolic pressure 25 mmHg. Right Atrium Normal right atrial size. Left Atrium Mildly increased left atrial size. Mitral Valve Moderate mitral annular calcification. Structurally normal mitral valve. No mitral valve stenosis. Trace mitral valve regurgitation. Aortic Valve Mildly thickened and calcified sclerotic aortic valve. No aortic valve stenosis. No aortic valve regurgitation. Tricuspid Valve Structurally normal tricuspid valve. No tricuspid valve stenosis. Trace to mild tricuspid valve regurgitation. Pulmonic Valve Pulmonic valve not well visualized. Pericardium No pericardial effusion. Aorta Normal size aortic root and proximal ascending aorta. IVC Inferior vena cava not visualized. CONCLUSIONS 1. Normal left ventricular size, systolic function and wall thickness, with no regional wall motion abnormalities. Left ventricular ejection fraction is estimated at 60 %. Grade I diastolic dysfunction (abnormal relaxation filling pattern), normal to mildly elevated filling pressures. 2. Trace to mild tricuspid valve regurgitation. 3. No prior similar studies to compare. Lesvia Carter MD (Electronically Signed) Final Date: 07 September 2022 04:19 S
== END 2022-09-05 10:35 | disposition home or self-care (01) ==
PROVIDERS: PCP Family Medicine; Visit Provider Family Medicine
DX: R01.1 Cardiac murmur, unspecified (principal); R42 Dizziness and giddiness; R07.9 Chest pain, unspecified; I07.1 Rheumatic tricuspid insufficiency
CPT/HCPCS: 80053; 80061; 83036; 83735; 84153; 84439; 84443; 85025; 93306

== ENCOUNTER → 2022-09-22 16:22 | Outpatient (BNVA) | payer MEDICARE, OTHER, SELFPAY | PROVIDERS: PCP Family Medicine; Visit Provider Family Medicine | DX: R30.0 Dysuria (principal) | CPT/HCPCS: 81000; 87086 ==

== ENCOUNTER → 2022-10-07 10:25 | Outpatient (BNVA) | payer MEDICARE, BC, SELFPAY | PROVIDERS: PCP Family Medicine; Visit Provider Internal Medicine Cardiovascular Disease | DX: I44.7 Left bundle-branch block, unspecified (principal); E03.9 Hypothyroidism, unspecified; I10 Essential (primary) hypertension; E78.5 Hyperlipidemia, unspecified; E11.9 Type 2 diabetes mellitus without complications; I49.8 Other specified cardiac arrhythmias; F17.210 Nicotine dependence, cigarettes, uncomplicated; Z79.84 Long term (current) use of oral hypoglycemic drugs | CPT/HCPCS: 99204 ==

== ENCOUNTER 2022-11-11 10:26 | Outpatient (CLI) | payer MEDICARE, BC, SELFPAY ==
--- NOTE | 2022-11-11 | ECG_ITS ---
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 Interpretive Statements NAME OF STUDY: LEXISCAN SESTAMIBI STRESS TEST INDICATION: Abnormal ekg PROCEDURE: At the baseline, the EKG revealed normal sinus rhythm with a left bundle branch block pattern. Diffuse secondary ST-T changes. The baseline heart was 79 bpm with a blood pressue of 154/84 mm of Hg Lexiscan was infused over a period of 20 seconds. A total of 0.4 milligrams of Lexiscan was infused. The stress phase was continued for a total of 5 minutes. Heart rate at the end of the stress phase was 99 bpm with a blood pressure 139/84 mm of Hg. The EKG at the peak infusion revealed no significant changes Sestamibi was injected 20 seconds after the Lexiscan infusion. Heart rate at the end of the recovery phase was 99 bpm with a blood pressure of 145/88 mm of Hg. CONCLUSION: 1. No significant EKG changes with the LexiScan infusion 2. No LexiScan induced chest pain or cardiac arrhythmia 3. Normal blood pressure and heart rate response 4. Sestamibi/sestamibi perfusion scan pending; see separate report. Electronically Signed On 11-14-2022 9:43:32 CDT by Javier De La Garza M.D. [email or web address]
[2022-11-11 11:01] VITALS: BMI 29.7
--- NOTE | 2022-11-11 11:21 | NMCV_ITS ---
NM steven perf SPECT r/s* [id number] Robin Crystal Age: 72 Gender: M : 1950 Exam Date: 11/11/2022 11:21 Ordering Phys: Javier De La Garza MD ([email or web address]) Technologist: JOSHUA Valencia Exam Location: [facility] Indications: CORONARY ANGIOPLASTY STATUS STRESS TEST [facility] IMAGE PROTOCOL Rest/Stress 1 Lexiscan Day Radiopharmaceutical Dose (mCi) Administration Site Administered by Rest: Tc-99m 10.7 IV JOSHUA Tsang Sestamibi Stress:Tc-99m 32.4 IV JOSHUA Valencia Sestamigerman Rest: 11-Nov-2022 60 Discovery 630 Stress: 11-Nov-2022 30 Discovery 630 0.4mg Lexiscan. Images obtained in supine and prone position. SPECT RESULTS Technical Quality: Excellent Raw Data Analysis: Normal Image Corrections: No attenuation or motion correction applied Summed Stress Score: 4 Summed Rest Score: 4 Summed Difference Score: 2 PERFUSION FINDINGS Small area of slightly decreased tracer uptake was noted in the mid and apical inferior and apical septal regions. A subtle area reversibility was noted in these regions. FUNCTIONAL RESULTS (calculated via Gated SPECT) Stress Image LV EF (%): 42 Stress EDV (mL):175 TID: 1.05 Stress ESV (mL):102 FUNCTIONAL FINDINGS: Segmental wall motion analysis revealed diffuse hypokinesia of the septum and apical region IMPRESSIONS 1. Myocardial perfusion imaging revealing small to moderate area of slightly decreased tracer uptake involving the inferior and apical septal regions with subtle areas of reversibility suggesting myocardial scarring in the distribution of the right coronary artery/left anterior ascending artery with a very small area of possible delores-infarction ischemia. 2. Diminished LV ejection fraction of 43%. 3. Wall motion normalities as mentioned above. 4. Mildly dilated LV cavity with an end-systolic volume 102 ml. No similar previous studies are available for comparison Dr Javier De La Garza MD FACC (Electronically Signed) Final Date: 11 November 2022 14:58 S
[2022-11-11] MEDS: regadenoson 0.4 Mg/5 ml Syringe IVP (12:06)
[2022-11-11 12:21] VITALS: BP 145/88; PULSE 99
== END 2022-11-11 10:27 | disposition home or self-care (01) ==
LOC: CDL 10:26
PROVIDERS: PCP Family Medicine; Visit Provider Internal Medicine Cardiovascular Disease
DX: R94.31 Abnormal electrocardiogram [ECG] [EKG] (principal); Z98.61 Coronary angioplasty status; R94.39 Abnormal result of other cardiovascular function study
CPT/HCPCS: 36415; 78452; 93017; 96374; A9500; J2785

== ENCOUNTER → 2023-01-20 12:45 | Outpatient (BNVA) | payer MEDICARE, BC, SELFPAY | PROVIDERS: PCP Family Medicine; Visit Provider Nurse Practitioner Family | DX: I49.8 Other specified cardiac arrhythmias (principal); I10 Essential (primary) hypertension; F17.210 Nicotine dependence, cigarettes, uncomplicated | CPT/HCPCS: 99214 ==

== ENCOUNTER → 2023-02-18 11:36 | Day surgery (SDC) | payer MEDICARE, BC, SELFPAY ==
--- NOTE | 2023-02-18 10:12 | XR_ITS ---
WS: [id number] CHEST XRAY TECHNIQUE: Portable chest. CLINICAL INFORMATION: Post PICC insertion COMPARISON: None. FINDINGS: RIGHT PICC in good position with tip in the distal SVC. No pneumothorax. IMPRESSION: RIGHT PICC in good position with tip in the distal SVC.
[2023-02-18 10:20] VITALS: BP 128/86; PULSE 89; RESP 18; TEMP 36.2; O2SAT 97
--- NOTE | 2023-02-18 10:45 | PC.NURSE ---
Pt referred to vascular access nurse for PICC placement from [facility]. Pt to start chemotherapy. Risks and benefits discussed and informed consent obtained from patient. Right arm assessed with right basilic vein measuring 4.0 mm, straight, and apparent best choice for placement. Using sterile technique and MST, right basilic vein accessed x 1 stick. Mid-arm circumference measured 10 cm from right AC 33 cm. Trimmed double lumen PICC cath length 45 cm with 1 cm external length noted. CXR shows tip in distal SVC, in good position for use per radiologist. Line secured with stat lock. Insertion site covered with Biopatch and TSM. Pt scheduled for PICC dressing change tomorrow, 02/19/23, at [facility].
== END ==
PROVIDERS: PCP Family Medicine; Visit Provider Internal Medicine
DX: Z45.2 Encounter for adjustment and management of vascular access device (principal)
CPT/HCPCS: 36573; 71045

== ENCOUNTER 2023-03-05 09:30 | Oncology outpatient (recurring) (ONCR) | payer OTHER, MEDICARE, SELFPAY ==
--- NOTE | 2023-02-18 10:22 | N.ONRAD NP_ITS ---
Radiation Oncology New Patient Visit Patient: Robin Crystal MR#: [id number] : 1950> Age: 72> Sex: Male> Dictated by: Dr. Ingrid Moore Date of Service: 02/18/2023 Referring Physician(s) : Diagnosis: Radiotherapy to date: Summary > No prior radiation therapy. 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 PSA 0.96 on August 20, 2022 and 0.6 on August 26, 2021In November he was referred to urology and underwent cystoscopy on 11/17/2022 which revealed multiple papillary tumors with enlarged prostateHe underwent TURBT with intravesical gemcitabine on 11/25/2022. Pathology revealed invasive papillary urothelial carcinoma with high-grade dysplasia and focal glandular differentiation positive for lymphovascular invasion, muscularis propria not present.He underwent TURBT and urethral dilation on 12/30/2022. 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 In November a large papillary tumor was removed that measured 3.5 cm from the anterior wall. The tumor extended around the left bladder neck as well and this was resected. Anteriorly the tumor was resected out of the muscle and appeared to be involving the muscle but pathologically was negative. In December an additional 1 cm papillary tumor was noted and removed near the dome. The prior resection site was resected down to the muscle. Resection extended from the right bladder neck all the way anteriorly and across to the left bladder neck. The entire area resected was 5 cm.02/05/2023 CT chest abdomen pelvis showed asymmetrical thickening of right side of bladder wall, 2 enlarged right pelvic lymph nodes and bilateral renal cyst PET scan is currently pending.No Active Chemotherapy Current Medications: amoxicillin-pot clavulanate 875-125 mg 1 tab PO BIDbenzonatate 100 mg PO TID PRNcholecalciferol (vitamin D3) 10 mcg PO DAILYcyanocobalamin (vitamin B-12) 1,000 mcg PO DAILYfenofibrate 160 mg PO DAILYlevothyroxine (Synthroid) 150 mcg PO DAILYlisinopril 40 mg PO DAILYmetformin 500 mg PO BIDomega 8-zej-ysq-fish oil 100-160-1,000 mg (Fish Oil) caps PO DAILYpantoprazole 40 mg PO DAILYprednisone 20 mg PO DAILY 5 daysrosuvastatin 40 mg PO DAILY Allergies: No Known Allergies Medical History: No history of collagen vascular disease. No previous radiation therapy. Surgical History: Hx of appendectomyStatus post colonoscopy (02/14/21)History of surgery on arm tendon repair Family History: Social History: Smoking and tobacco/nicotine status: current every day tobacco/nicotine user cigarettes Packs smoked per day: 2 Alcohol intake: current Alcohol intake frequency: 0-2 Drinks per Day Substance/Drug Use: never Current Complaints / Review of Systems: . Vital Signs: Performed on 02/18/2023 9:33 AM BMI - 29.87 kg/m2 (high), Height - 73 in, Weight - 226.4 lbs, Temperature - 97.2 f, Pulse - 91 /min, Respiration - 16 /min, O2 Sat - 98 %, Pain - 0, Fatigue - 0 and BP - 150/ 83 mm(hg)(high/). Physical Exam: General: Patient is in no apparent distress HEENT: Normocephalic atraumatic. Pupils are equal, sclera clear, extraocular muscles intact. Neck is supple without palpable cervical or supraclavicular adenopathy. Oral cavity was without lesions or thrush. Pulmonary: Lungs were clear to auscultation but with decreased breath sounds throughout Cardiovascular: Regular rate and rhythm Abdomen: Soft and nontender without hepatomegaly Extremities: No upper extremity edema was noted. Neuro: Alert and oriented x 3. Gait and speech within normal limits Performance Status: 100 Pathology: Imaging: See HPI Impression: High-grade invasive urothelial carcinoma with last resection on December 30 Plan: Prior to my encounter he met with medical oncology. He had previously agreed to proceed with bladder conserving therapy. I reviewed with him the use of radiation and bladder cancer. We discussed the simulation process. We reviewed the daily treatment regiment. I reviewed the risks and side effects both acute and long-term. He had questions in regards to possibility of distant metastasis. I reviewed with him that this is quite possible in the future and that the most common place for the metastasis to go is the lung. We talked about his follow-up schedule and the scans that he would get over the first couple of years. At this point he had no additional questions or concerns. He is agreed to proceed with combined modality therapy. At this point we will get his PET scan ordered and based on its results proceed with combined therapy. He will need a simulation right after the PET scan to that we can proceed with getting his treatment in a timely fashion. Signed by: 02/18/2023 10:21:10 AM <<Signature on File>> Time spent with patient:60 CPT Code: CPT Code:
[2023-02-18 10:32] LABS: Basophils % 0.3 %; Eosinophils # 0.3 10^3/uL (0.0-0.8); Eosinophils % 3.6 %; Hematocrit 47.3 % (37-53); Lymphocytes # 1.7 10^3/uL (0.8-4.8); Lymphocytes % 22.3 %; Mean Corpuscular Hemoglobin 33.4 pg (27-33); Mean Corpuscular Volume 98.1 fl (82-101); Mean Platelet Volume 9.9 fL (7.4-10.4); Monocytes # 0.4 10^3/uL (0.2-0.9); Monocytes % 5.7 %; Neutrophils # 5.21 10^3/uL (1.8-7.7); Neutrophils % 67.7 %; Nucleated Red Blood Cells % 0 %; Platelet Count 233 10^3/cmm (157-399); Red Blood Count 4.82 10^6/uL (3.85-5.65); Red Cell Distribution Width 11.7 % (12.1-15.1)
[2023-02-18 10:58] LABS: Alanine Aminotransferase 14 U/L (0-41); Albumin Level 4.3 g/dL (3.5-5.2); Alkaline Phosphatase 88 U/L (40-130); Anion Gap 13.2 (5-19); Aspartate Amino Transferase 14 U/L (0-40); Blood Urea Nitrogen 15 mg/dL (8-23); Calcium 9.5 mg/dL (8.5-10.5); Carbon Dioxide 28 mmol/L (22-29); Chloride 102 mmol/L (98-107); Globulin 2.8 g/dL (1.3-4.6); Glucose 116 mg/dL (65-115); Osmolality Calculated 290 mOsm/kg (285-295); Potassium 4.2 mmol/L (3.5-5.1); Prostate Specific Antigen 0.903 ng/mL (0-4); Sodium 139 mmol/L (136-145); Total Bilirubin 0.5 mg/dL (0.15-1.2); Total Protein 7.1 g/dL (6.6-8.7)
[2023-02-18 11:21] LABS: Hepatitis A Antibody IgM Non-Reactive (Nonreactive); Hepatitis B Core AB, Total Non-Reactive (Nonreactive); Hepatitis B Surface AB 4.7 (11.5-1000); Hepatitis B Surface Antigen Non-Reactive (Nonreactive); Hepatitis C Virus Antibody Non-Reactive (Nonreactive)
[2023-02-26 10:45] VITALS: BP 147/83; PULSE 97; RESP 16; TEMP 36.5; O2SAT 98
[2023-03-05 09:45] VITALS: BP 152/81; PULSE 63; RESP 16; TEMP 36.1; O2SAT 98
== END 2023-03-08 23:59 | disposition home or self-care (01) ==
PROVIDERS: Internal Medicine; PCP Family Medicine; Visit Provider Specialist
DX: Z45.1 Encounter for adjustment and management of infusion pump (principal); Z53.9 Procedure and treatment not carried out, unspecified reason
CPT/HCPCS: 36415; 36573; 71045; 80053; 84153; 85025; 86705; 86706; 86709; 86803; 87340; 99205; J1642

== ENCOUNTER 2023-04-03 10:00 | Oncology outpatient (recurring) (ONCR) | payer MEDICARE, OTHER, SELFPAY ==
[2023-03-19 08:25] VITALS: BP 145/84; PULSE 97; RESP 16; TEMP 36.6; O2SAT 96
[2023-03-31 08:53] VITALS: BP 147/84; PULSE 96; RESP 18; TEMP 36.8; O2SAT 98
[2023-03-31 10:03] LABS: Basophils # 0.1 10^3/uL (0.0-0.1); Basophils % 1.2 %; Eosinophils # 0.2 10^3/uL (0.0-0.8); Eosinophils % 3.8 %; Hematocrit 42.5 % (37-53); Lymphocytes # 1.5 10^3/uL (0.8-4.8); Lymphocytes % 35.8 %; Mean Corpuscular HGB Conc 34.4 g/dL (30-55); Mean Corpuscular Hemoglobin 33.1 pg (27-33); Mean Corpuscular Volume 96.4 fl (82-101); Mean Platelet Volume 10.2 fL (7.4-10.4); Monocytes # 0.3 10^3/uL (0.2-0.9); Monocytes % 7.1 %; Neutrophils # 2.21 10^3/uL (1.8-7.7); Neutrophils % 51.9 %; Nucleated Red Blood Cells % 0 %; Platelet Count 196 10^3/cmm (157-399); Red Blood Count 4.41 10^6/uL (3.85-5.65); Red Cell Distribution Width 11.9 % (12.1-15.1); White Blood Count 4.25 10^3/uL (3.29-11.43)
[2023-03-31 10:29] LABS: Alanine Aminotransferase 14 U/L (0-41); Albumin Level 4.2 g/dL (3.5-5.2); Alkaline Phosphatase 67 U/L (40-130); Blood Urea Nitrogen 13 mg/dL (8-23); Calcium 9.5 mg/dL (8.5-10.5); Carbon Dioxide 25 mmol/L (22-29); Chloride 103 mmol/L (98-107); Globulin 2.8 g/dL (1.3-4.6); Glucose 113 mg/dL (65-115); Osmolality Calculated 287 mOsm/kg (285-295); Sodium 138 mmol/L (136-145); Total Bilirubin 0.6 mg/dL (0.15-1.2)
[2023-03-31 10:39] LABS: Aspartate Amino Transferase 19 U/L (0-40)
[2023-03-31 10:47] LABS: Anion Gap 14.4 (5-19); Potassium 4.4 mmol/L (3.5-5.1)
[2023-03-31] MEDS: sodium chloride 0.9% 250 ML 75 ML IV (12:00)
[2023-03-31] MEDS: ondansetron 2 mg/ML SDV 2 mL 8 MG IVP (12:03)
[2023-03-31] MEDS: mitoMYcin 20 mg SDV 27 MG IVP (12:46)
[2023-03-31] MEDS: FLUOROURACIL IV (12:59)
[2023-03-31] MEDS: ELASTOMERIC PUMP PUMP IV (12:59)
[2023-03-31] MEDS: SODIUM CHLORIDE IV (12:59)
[2023-03-31 13:11] VITALS: BP 150/87; PULSE 79; TEMP 36.2; O2SAT 96
--- NOTE | 2023-03-31 15:49 | PC.NURSE ---
Mitomycin scanned to be given to pt. Medication did not require a co-signer. Debbie Goel RN verified pts name, , medication and dosage. Pharmacist Emilie notified. HESHAM
[2023-04-03 09:49] VITALS: BP 156/72; PULSE 95; RESP 18; TEMP 36.6; O2SAT 96
--- NOTE | 2023-04-03 09:57 | PC.NURSE ---
Pt requested pump be removed today 04/03/23 vs 04/06/23. Pump is due to come off tomorrow 04/04/23. Gave pt the option to have a family member remove pump tomorrow (pt states his daughter does not want to do that), remove today (educated on potentially not receiving all medication), or waiting until thursday. Pt continues to request pump be removed today and start cycle two on a thursday for full 5Fu treatment. 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 JW
== END 2023-04-03 23:59 | disposition home or self-care (01) ==
PROVIDERS: Internal Medicine; PCP Family Medicine; Visit Provider Radiology Radiation Oncology
DX: Z51.0 Encounter for antineoplastic radiation therapy (principal); Z45.2 Encounter for adjustment and management of vascular access device; C67.9 Malignant neoplasm of bladder, unspecified; N40.0 Benign prostatic hyperplasia without lower urinary tract symptoms; Z53.9 Procedure and treatment not carried out, unspecified reason
CPT/HCPCS: 36592; 77300; 77301; 77334; 77338; 77386; 77470; 80053; 85025; 96375; 96409; 96416; 96523; 99024; 99215; J1642; J2405; J7050; J9190; J9280

== ENCOUNTER 2023-04-08 09:18 | Oncology outpatient (recurring) (ONCR) | payer MEDICARE, OTHER, SELFPAY ==
[2023-04-06 10:49] LABS: Basophils # 0.1 10^3/uL (0.0-0.1); Basophils % 1.4 %; Eosinophils # 0.2 10^3/uL (0.0-0.8); Eosinophils % 5.7 %; Hematocrit 41.2 % (37-53); Lymphocytes % 27.6 %; Mean Corpuscular Hemoglobin 32.9 pg (27-33); Mean Corpuscular Volume 96.7 fl (82-101); Mean Platelet Volume 9.9 fL (7.4-10.4); Monocytes # 0.1 10^3/uL (0.2-0.9); Monocytes % 3.7 %; Neutrophils # 2.16 10^3/uL (1.8-7.7); Neutrophils % 61.3 %; Nucleated Red Blood Cells % 0 %; Platelet Count 174 10^3/cmm (157-399); Red Blood Count 4.26 10^6/uL (3.85-5.65); Red Cell Distribution Width 11.9 % (12.1-15.1); White Blood Count 3.52 10^3/uL (3.29-11.43)
[2023-04-06 11:01] LABS: Alanine Aminotransferase 11 U/L (0-41); Albumin Level 4.2 g/dL (3.5-5.2); Alkaline Phosphatase 70 U/L (40-130); Anion Gap 13.5 (5-19); Aspartate Amino Transferase 19 U/L (0-40); Blood Urea Nitrogen 13 mg/dL (8-23); Calcium 9.2 mg/dL (8.5-10.5); Carbon Dioxide 27 mmol/L (22-29); Chloride 102 mmol/L (98-107); Globulin 2.9 g/dL (1.3-4.6); Glucose 123 mg/dL (65-115); Osmolality Calculated 287 mOsm/kg (285-295); Potassium 4.5 mmol/L (3.5-5.1); Sodium 138 mmol/L (136-145); Total Bilirubin 0.9 mg/dL (0.15-1.2); Total Protein 7.1 g/dL (6.6-8.7)
--- NOTE | 2023-04-07 10:15 | ONCRAD TMN_ITS ---
Radiation Oncology Weekly Treatment Management Patient: Robin Crystal MR#: [id number] : 1950> Attending Physician: Hugo Ramirez Date of Service: 04/07/2023 Referring Physician(s) : Diagnosis: Radiotherapy to date: Course: Bladder 2023, Treatment Site: [id number], Ref. ID: [id number], Energy: 15X, Dose/Fx (cGy): 220, #Fx: , Dose Correction (cGy): 0, Total Dose (cGy): 1,320, Start Date: 03/31/2023, Elapsed Days: 7 Reason for visit: The patient is being seen today as part of their regularly scheduled weekly on treatment visits to assess for acute toxicities from radiotherapy. Review of Systems: Patient complains of occasional mild to moderate fatigue. He denies any recent hematuria. He has occasional mild nausea that is controlled with his medication. He has nocturia x 2. 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 Vital Signs: Performed on 04/07/2023 9:35 AM BMI - 29.448 kg/m2 (high), Height - 73 in, Weight - 223.2 lbs, Temperature - 97.6 f, Pulse - 84 /min, Respiration - 16 /min, O2 Sat - 97 %, Pain - 0, Fatigue - 5 and BP - 122/ 76 mm(hg). Physical Exam: Alert and oriented male appearing his stated age. No alopecia. Patient ambulatory without assistance. Imaging: Radiation therapy imaging related to accurate target localization (i.e. KV, MV and CBCT) was reviewed. Appropriate changes, if any, were made to ensure treatment accuracy. Plan: Patient is tolerating radiation therapy well. Plan to continue prescribed treatment. Signed by: Hugo Ramirez 04/07/2023 10:14:00 AM
== END 2023-04-08 23:59 | disposition home or self-care (01) ==
PROVIDERS: Nurse Practitioner Family; PCP Family Medicine; Visit Provider Radiology Radiation Oncology
DX: Z51.0 Encounter for antineoplastic radiation therapy; C67.9 Malignant neoplasm of bladder, unspecified
CPT/HCPCS: 36415; 77386; 80053; 85025; J1642

== ENCOUNTER 2023-04-23 09:14 | Oncology outpatient (recurring) (ONCR) | payer MEDICARE, OTHER, SELFPAY ==
--- NOTE | 2023-04-14 09:48 | ONCRAD TMN_ITS ---
Radiation Oncology Weekly Treatment Management Patient: Robin Crystal MR#: [id number] : 1950> Attending Physician: Dr. Ingrid Moore Date of Service: 04/14/2023 Fractions: 11 out of 25 to the bladder along with chemotherapy Referring Physician(s) : Diagnosis: Radiotherapy to date: Course: Bladder 2023, Treatment Site: [id number], Ref. ID: [id number], Energy: 15X, Dose/Fx (cGy): 220, #Fx: , Dose Correction (cGy): 0, Total Dose (cGy): 2,420, Start Date: 03/31/2023, Elapsed Days: 14 Reason for visit: The patient is being seen today as part of their regularly scheduled weekly on treatment visits to assess for acute toxicities from radiotherapy. Review of Systems: Patient has occasional pain through the bladder area which she is able to alleviate with Tylenol or ibuprofen Vital Signs: Performed on 04/14/2023 9:20 AM BMI - 29.817 kg/m2 (high), Height - 73 in, Weight - 226.0 lbs, Temperature - 97.4 f, Pulse - 84 /min, Respiration - 16 /min, O2 Sat - 96 %, Pain - 0, Fatigue - 0 and BP - 146/ 84 mm(hg)(high/). Physical Exam: Patient is in no apparent distress sitting comfortably in his chair Imaging: Radiation therapy imaging related to accurate target localization (i.e. KV, MV and CBCT) was reviewed. Appropriate changes, if any, were made to ensure treatment accuracy. Plan: Will continue with his treatments as planned. He said he is not getting chemo this week. Signed by: Dr. Ingrid Moore 04/14/2023 9:47:01 AM
[2023-04-20 08:23] LABS: Basophils % 1.7 %; Eosinophils # 0.2 10^3/uL (0.0-0.8); Eosinophils % 6.3 %; Hematocrit 38.2 % (37-53); Lymphocytes # 0.6 10^3/uL (0.8-4.8); Lymphocytes % 25.8 %; Mean Corpuscular HGB Conc 35.6 g/dL (30-55); Mean Corpuscular Hemoglobin 33.8 pg (27-33); Mean Platelet Volume 9.4 fL (7.4-10.4); Monocytes # 0.3 10^3/uL (0.2-0.9); Monocytes % 11.3 %; Neutrophils # 1.31 10^3/uL (1.8-7.7); Neutrophils % 54.5 %; Nucleated Red Blood Cells % 0 %; Platelet Count 92 10^3/cmm (157-399); Red Blood Count 4.02 10^6/uL (3.85-5.65); Red Cell Distribution Width 12.6 % (12.1-15.1)
[2023-04-20 08:43] LABS: Alanine Aminotransferase 16 U/L (0-41); Alkaline Phosphatase 67 U/L (40-130); Blood Urea Nitrogen 11 mg/dL (8-23); Calcium 8.4 mg/dL (8.5-10.5); Carbon Dioxide 25 mmol/L (22-29); Chloride 102 mmol/L (98-107); Globulin 2.9 g/dL (1.3-4.6); Glucose 98 mg/dL (65-115); Osmolality Calculated 279 mOsm/kg (285-295); Sodium 135 mmol/L (136-145); Total Bilirubin 0.5 mg/dL (0.15-1.2); Total Protein 6.9 g/dL (6.6-8.7)
[2023-04-20 08:52] LABS: Anion Gap 12.4 (5-19); Aspartate Amino Transferase 20 U/L (0-40); Potassium 4.4 mmol/L (3.5-5.1)
--- NOTE | 2023-04-21 10:06 | ONCRAD TMN_ITS ---
Radiation Oncology Weekly Treatment Management Patient: Bonilla Martinez MR#: [id number] : 1950> Attending Physician: Dr. Ingrid Moore Date of Service: 04/21/2023 Fractions: 16 out of 25 Referring Physician(s) : Diagnosis: Bladder cancer Radiotherapy to date: Course: Bladder 2023, Treatment Site: [id number], Ref. ID: [id number], Energy: 15X, Dose/Fx (cGy): 220, #Fx: 16 / 25, Dose Correction (cGy): 0, Total Dose Delivered (cGy): 3,520, Start Date: 03/31/2023, Elapsed Days: 21 Reason for visit: The patient is being seen today as part of their regularly scheduled weekly on treatment visits to assess for acute toxicities from radiotherapy. Review of Systems: Patient has had increasing frequency. He got up 6 times last night. He has had some blood in the urine as well. But no clots. His UA from yesterday is currently negative. He is having more pain through the bladder when he urinates Vital Signs: Performed on 04/21/2023 9:28 AM BMI - 29.369 kg/m2 (high), Height - 73 in, Weight - 222.6 lbs, Temperature - 97.6 f, Pulse - 96 /min, Respiration - 18 /min, O2 Sat - 95 % (low), Pain - 2, Fatigue - 0 and BP - 129/ 72 mm(hg). Physical Exam: Patient is no apparent distress sitting comfortably in the chair Imaging: Radiation therapy imaging related to accurate target localization (i.e. KV, MV and CBCT) was reviewed. Appropriate changes, if any, were made to ensure treatment accuracy. Plan: Will continue with his treatments as planned. 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 It may not be very effective since his bladder is quite raw at this point. He understands that this is the normal process since the target volume is his bladder. Signed by: Dr. Ingrid Moore 04/21/2023 10:04:45 AM
== END 2023-04-23 23:59 | disposition home or self-care (01) ==
PROVIDERS: Nurse Practitioner Family; PCP Family Medicine; Visit Provider Radiology Radiation Oncology
DX: C67.9 Malignant neoplasm of bladder, unspecified; Z51.0 Encounter for antineoplastic radiation therapy
CPT/HCPCS: 77014; 77336; 77386; 80053; 80061; 83036; 84439; 84443; 85025; 87086; 99024; 99214; J1642

== ENCOUNTER 2023-05-05 13:01 | Oncology outpatient (recurring) (ONCR) | payer MEDICARE, OTHER, SELFPAY ==
[2023-04-27 09:40] VITALS: BMI 29.8
[2023-04-27 09:42] VITALS: BP 181/94; PULSE 89; RESP 16; TEMP 36.6; O2SAT 98
[2023-04-27 09:56] LABS: Basophils % 1.2 %; Eosinophils # 0.2 10^3/uL (0.0-0.8); Eosinophils % 4.6 %; Hematocrit 38.7 % (37-53); Lymphocytes # 0.6 10^3/uL (0.8-4.8); Lymphocytes % 18.4 %; Mean Corpuscular HGB Conc 34.6 g/dL (30-55); Mean Corpuscular Hemoglobin 33.1 pg (27-33); Mean Corpuscular Volume 95.6 fl (82-101); Mean Platelet Volume 8.9 fL (7.4-10.4); Monocytes # 0.2 10^3/uL (0.2-0.9); Monocytes % 6.7 %; Neutrophils # 2.23 10^3/uL (1.8-7.7); Neutrophils % 68.5 %; Nucleated Red Blood Cells % 0 %; Platelet Count 85 10^3/cmm (157-399); Red Blood Count 4.05 10^6/uL (3.85-5.65); Red Cell Distribution Width 13.1 % (12.1-15.1); White Blood Count 3.26 10^3/uL (3.29-11.43)
[2023-04-27 10:16] LABS: Alanine Aminotransferase 12 U/L (0-41); Albumin Level 4.1 g/dL (3.5-5.2); Alkaline Phosphatase 68 U/L (40-130); Anion Gap 11.8 (5-19); Aspartate Amino Transferase 15 U/L (0-40); Blood Urea Nitrogen 12 mg/dL (8-23); Calcium 8.9 mg/dL (8.5-10.5); Carbon Dioxide 29 mmol/L (22-29); Chloride 105 mmol/L (98-107); Creatinine Clr Calc Pharmacy 101.9159; Globulin 2.9 g/dL (1.3-4.6); Glucose 144 mg/dL (65-115); Osmolality Calculated 294 mOsm/kg (285-295); Potassium 4.8 mmol/L (3.5-5.1); Sodium 141 mmol/L (136-145); Total Bilirubin 0.5 mg/dL (0.15-1.2)
[2023-04-27] MEDS: ondansetron 2 mg/ML SDV 2 mL 8 MG IVP (12:17)
[2023-04-27 12:24] VITALS: BP 145/87; PULSE 85; RESP 16; TEMP 36.6; O2SAT 99
[2023-04-27] MEDS: FLUOROURACIL IV (12:37)
[2023-04-27] MEDS: SODIUM CHLORIDE IV (12:37)
[2023-04-27] MEDS: ELASTOMERIC PUMP PUMP IV (12:37)
--- NOTE | 2023-04-28 10:21 | ONCRAD TMN_ITS ---
Radiation Oncology Weekly Treatment Management Patient: Robin Crystal> MR#: [id number] : 1950> Attending Physician: Hugo Ramirez Date of Service: 04/28/2023 Referring Physician(s) : Diagnosis: Radiotherapy to date: Course: Bladder 2023, Treatment Site: [id number], Ref. ID: [id number], Energy: 15X, Dose/Fx (cGy): 220, #Fx: , Dose Correction (cGy): 0, Total Dose Delivered (cGy): 4,620, Start Date: 03/31/2023, Elapsed Days: 28 Reason for visit: The patient is being seen today as part of their regularly scheduled weekly on treatment visits to assess for acute toxicities from radiotherapy. Review of Systems: Patient reports mild fatigue and is napping for about an hour in the afternoon. He reports he is sleeping well at night. He denies dysuria, urgency, or frequency. He has no complaints of diarrhea or constipation. Vital Signs: Performed on 04/28/2023 9:33 AM BMI - 29.791 kg/m2 (high), Height - 73 in, Weight - 225.8 lbs, Temperature - 97.6 f, Pulse - 89 /min, Respiration - 16 /min, O2 Sat - 97 %, Pain - 0, Fatigue - 6 and BP - 133/ 80 mm(hg). Physical Exam: Alert and oriented male appearing his stated age. Skin in the treatment area is intact without erythema or desquamation. Patient ambulatory without assistance. Imaging: Radiation therapy imaging related to accurate target localization (i.e. KV, MV and CBCT) was reviewed. Appropriate changes, if any, were made to ensure treatment accuracy. Plan: Patient is nearing completion of radiation therapy for treatment of his bladder carcinoma. He has minimal treatment related side effects. Plan to continue prescribed treatment. Signed by: Hugo Ramirez 04/28/2023 10:20:30 AM
--- NOTE | 2023-05-05 14:33 | N.ONRD TS_ITS ---
Radiation Oncology Treatment Summary Patient: Robin Crystal MR#: [id number] : 1950> Age: 72> Sex: Male Dictated by: Dr. Ingrid Moore Date of Service: 05/05/2023 Referring Physician(s) : Diagnosis: Radiotherapy to Date: Course: Bladder 2023, Treatment Site: [id number], Ref. ID: [id number], Energy: 15X, Dose/Fx (cGy): 220, #Fx: 25 / 25, Dose Correction (cGy): 0, Total Dose Delivered (cGy): 5,500, Start Date: 03/31/2023, End Date: 05/05/2023, Elapsed Days: 35 Clinical Summary: The patient tolerated RT well. Patient did experience some burning with urination and increased frequency. Plan: End of treatment today. Continue on the above medication until the skin reaction resolves. Follow up in one month. Signed by: Dr. Ingrid Moore>05/05/2023 2:32:13 PM <<Signature on File>>
== END 2023-05-07 23:59 | disposition home or self-care (01) ==
PROVIDERS: Nurse Practitioner Family; PCP Family Medicine; Visit Provider Radiology Radiation Oncology
DX: C67.9 Malignant neoplasm of bladder, unspecified; Z51.0 Encounter for antineoplastic radiation therapy; R35.0 Frequency of micturition; R30.9 Painful micturition, unspecified
CPT/HCPCS: 36415; 77014; 77336; 77386; 80053; 85025; 96374; 96375; 96416; 96523; 99024; J1642; J2405; J9190

== ENCOUNTER 2023-05-19 14:37 | Outpatient (CLI) | payer MEDICARE, OTHER, SELFPAY ==
--- NOTE | 2023-05-19 15:30 | CTR_ITS ---
PROCEDURE INFORMATION: Exam: CT Chest Without Contrast; Diagnostic Exam date and time: 05/19/2023 3:43 PM Age: 72 years old Clinical indication: Condition or disease; Other: Bladder cancer; Follow-up oncological assessment; Prior surgery; Surgery date: 6+ months; Additional info: Restaging TECHNIQUE: Imaging protocol: Diagnostic computed tomography of the chest without contrast. Radiation optimization: All CT scans at this facility use at least one of these dose optimization techniques: automated exposure control; mA and/or kV adjustment per patient size (includes targeted exams where dose is matched to clinical indication); or iterative reconstruction. [facility] [place] [id number] 02/05/2023 10:20 AM RADIATION DOSE METRICS: Total DLP (mGy-cm): 1059.39 FINDINGS: Thyroid: Grossly unremarkable. Lungs: No focal consolidation. No pneumothorax. Indeterminate 13 mm nodular opacity within the right costophrenic sulcus. Pleural spaces: No pleural effusion. Heart: No cardiomegaly. No pericardial effusion. Coronary arteries: There are incidental coronary artery calcifications. Mediastinal space: Trachea and airway are grossly patent. No evidence of mediastinal hemorrhage or hematoma. Lymph nodes: No evidence of mediastinal adenopathy. Evaluation for hilar adenopathy is limited by lack of IV contrast. Vasculature: Borderline aneurysmal dilatation of the descending thoracic aorta measuring up to 3.2 cm. Evaluation for acute vascular injury or thrombosis is limited by lack of IV contrast. Bones/joints: No evidence of acute fracture or aggressive osseous lesion. Soft tissues: No evidence of fluid collection or hematoma in the superficial soft tissues. PROCEDURE INFORMATION: Exam: CT Abdomen And Pelvis Without Contrast Exam date and time: 05/19/2023 3:43 PM Age: 72 years old Clinical indication: Condition or disease; Other: Bladder cancer; Follow-up oncological assessment; Prior surgery; Surgery date: 6+ months; Additional info: Restaging TECHNIQUE: Imaging protocol: Computed tomography of the abdomen and pelvis without contrast. Radiation optimization: All CT scans at this facility use at least one of these dose optimization techniques: automated exposure control; mA and/or kV adjustment per patient size (includes targeted exams where dose is matched to clinical indication); or iterative reconstruction. COMPARISON: [place] [id number] 02/05/2023 10:20 AM RADIATION DOSE METRICS: Total DLP (mGy-cm): 1059.39 FINDINGS: Liver: No evidence of focal hepatic lesion within limitation of a noncontrast exam. Gallbladder and bile ducts: There is cholelithiasis. No inflammatory changes to suggest acute cholecystitis. No intrahepatic or extrahepatic biliary dilatation. Pancreas: Grossly unremarkable. Spleen: Grossly unremarkable. Adrenal glands: Grossly unremarkable. Kidneys and ureters: There are simple appearing renal cysts for which dedicated imaging follow-up is not required. Punctate nonobstructive 1-2 mm renal stones bilaterally. Otherwise no evidence of renal parenchymal abnormality. No hydronephrosis or ureteral stone. Stomach and bowel: No evidence of bowel obstruction or perienteric inflammatory changes. Appendix:The appendix is not visualized, however there are no findings to suggest appendicitis. Intraperitoneal space: No evidence of free air or fluid collection. Vasculature: Mild atherosclerosis without evidence of aneurysmal dilitation of abdominal aorta. Lymph nodes: No evidence of adenopathy. Urinary bladder: Moderate diffuse bladder wall thickening/haziness. Otherwise grossly unremarkable. Reproductive: Enlarged prostate measuring 6 cm. Consider correlation with serum laboratory findings and outpatient urologic evaluation. Bones/joints: No evidence of acute fracture or aggresive osseous lesion. Scattered bone islands in the pelvis and proximal femurs. Soft tissues: No evidence of fluid collection or hematoma in the superficial soft tissues. [place] [id number] IMPRESSION: 1. Indeterminate 13 mm nodular opacity within the right costophrenic sulcus, possibly representing nodular atelectasis. If not previously characterized, consider correlation with PET-CT or short interval follow-up CT of the chest. Otherwise no evidence of metastatic disease in the chest. IMPRESSION: 1. Diffuse bladder wall thickening/haziness, with partial improvement in the previously visualized nodular thickening of the anterior bladder wall. No evidence of metastatic disease in the abdomen or pelvis within limitations of a noncontrast exam.
[2023-05-19] MEDS: iohexol 350 mg/mL 500 mL Btl (per mL) PO (15:50)
== END 2023-05-19 14:38 | disposition home or self-care (01) ==
LOC: RAD 14:38
PROVIDERS: PCP Family Medicine; Visit Provider Nurse Practitioner Family
DX: C67.9 Malignant neoplasm of bladder, unspecified (principal); R91.8 Other nonspecific abnormal finding of lung field
CPT/HCPCS: 71250; 74176; Q9967

== ENCOUNTER 2023-06-01 09:20 | Oncology outpatient (recurring) (ONCR) | payer MEDICARE, SELFPAY ==
--- NOTE | 2023-06-01 09:49 | ONCRAD EPV_ITS ---
Radiation Oncology Established Patient Visit Patient: Bonilla Kelly [id number] : 1950> Age: 72> Sex: Male> Dictated by: Dr. Ingrid Moore Date of Service: 06/01/2023 Referring Physician(s) : Diagnosis: C67.9 - Malignant neoplasm of bladder, unspecified, Diagnosed 12/30/2022 (Active) Radiotherapy to Date: Course: Bladder 2023, Treatment Site: [id number], Ref. ID: [id number], Energy: 15X, Dose/Fx (cGy): 220, #Fx: , Dose Correction (cGy): 0, Total Dose Delivered (cGy): 5,500, Start Date: 03/31/2023, End Date: 05/05/2023, Elapsed Days: 35 Current History: Current Medications: Allergies: No Known Allergies Current Complaints / Review of Systems: . Patient continues to have dysuria. He does think that it is improving. He will have good days and bad days. He did see the urologist and a UA was done at but this was clear. Vital Signs: Performed on 06/01/2023 9:34 AM BMI - 30.002 kg/m2 (high), Height - 73 in, Weight - 227.4 lbs, Temperature - 98 f, Pulse - 94 /min, Respiration - 18 /min, O2 Sat - 97 %, Pain - 0, Fatigue - 0 and BP - 128/ 76 mm(hg). Physical Exam: General: Alert and oriented x 3. No acute distress. HEENT: Normocephalic, atraumatic. Extraocular Movements Intact: Pupils Equal, Round, Reactive to Light: Sclerae anicteric . LUNGS: Respiratory rate is regular nonlabored HEART: Regular rate and rhythm . ABDOMEN: Fairly flat and nondistended EXTREMITIES: No clubbing cyanosis or edema noted. NEUROLOGIC: Alert and orient x 3. Gait and speech within normal limits. Performance Status: 100 Lab: None pending. UA done at the urology office did not show any signs of infection Pathology: Imaging: See HPI Impression: Patient is now a month out from completing treatment to the bladder for bladder tumor. He will be scoped in 6 to 8 weeks. I gave him the results of his CT scan which showed improvement of the thickening of the bladder wall. He did have incidental finding of a lesion in the lower part of the lung. Follow-up was recommended. At this point I have scheduled him for a 6-month with a CT of his chest and abdomen or he will call if any problems arise in the interim. Signed by: 06/01/2023 9:48:34 AM <<Signature on File>> Time spent with patient:20 CPT Code: CPT Code:
== END 2023-06-07 23:59 | disposition home or self-care (01) ==
LOC: ONCMED 09:21
PROVIDERS: PCP Family Medicine; Visit Provider Radiology Radiation Oncology
DX: C67.9 Malignant neoplasm of bladder, unspecified (principal); R91.8 Other nonspecific abnormal finding of lung field

== ENCOUNTER → 2023-09-03 09:16 | Outpatient (BNVA) | payer MEDICARE, SELFPAY | PROVIDERS: PCP Family Medicine; Visit Provider Nurse Practitioner Family | DX: D48.5 Neoplasm of uncertain behavior of skin (principal); L82.1 Other seborrheic keratosis; D22.5 Melanocytic nevi of trunk; Q82.5 Congenital non-neoplastic nevus; D69.2 Other nonthrombocytopenic purpura; L57.8 Other skin changes due to chronic exposure to nonionizing radiation; L60.3 Nail dystrophy | CPT/HCPCS: 11102; 99203 ==

== ENCOUNTER → 2023-10-07 13:24 | Outpatient (BNVA) | payer MEDICARE, SELFPAY | PROVIDERS: PCP Family Medicine; Visit Provider Nurse Practitioner Family | DX: L82.0 Inflamed seborrheic keratosis (principal); D69.2 Other nonthrombocytopenic purpura; L57.8 Other skin changes due to chronic exposure to nonionizing radiation; L60.3 Nail dystrophy | CPT/HCPCS: 17110; 99213 ==

== ENCOUNTER 2023-12-29 07:42 | Outpatient (CLI) | payer MEDICARE, BC, SELFPAY ==
--- NOTE | 2023-12-29 08:00 | CTR_ITS ---
PROCEDURE INFORMATION: Exam: CT Chest Without Contrast; Diagnostic Exam date and time: 12/29/2023 8:53 AM Age: 73 years old Clinical indication: Abnormal findings; Abnormal radiologic finding of the abdomen; Abnormal radiologic exam of lung or chest; Patient HX: Bladder cancer; Additional info: Bladder cancer, lung abnormality TECHNIQUE: Imaging protocol: Diagnostic computed tomography of the chest without contrast. Radiation optimization: All CT scans at this facility use at least one of these dose optimization techniques: automated exposure control; mA and/or kV adjustment per patient size (includes targeted exams where dose is matched to clinical indication); or iterative reconstruction. COMPARISON[place] [id number] 05/19/2023 3:43 PM RADIATION DOSE METRICS: Total DLP (mGy-cm): 1112.05 FINDINGS: Lungs: Mild apical predominant centrilobular emphysema. Mild decreased conspicuity of subpleural right lung base pulmonary nodule, which measures approximately 3 x 11 mm axial, previously 9 x 18 mm. No new or enlarging pulmonary nodule or infiltrate is identified. Pleural spaces: Unremarkable. No pneumothorax. No pleural effusion. Heart: Unremarkable. No cardiomegaly. No pericardial effusion. Coronary arteries: Mild coronary vessel atherosclerosis. Esophagus: Mild circumferential thickening of the esophagus, as can be seen with esophagitis. Lymph nodes: No mediastinal or hilar adenopathy. Vasculature: See Coronary arteries finding. Bones/joints: Unremarkable. No acute fracture. Soft tissues: Unremarkable. COMMENTS: The presence of pulmonary emphysema on CT is an independent risk factor for lung cancer. In the absence of a history or active diagnosis of lung cancer, it is recommended that this patient with emphysema be evaluated for enrollment in a low dose CT lung cancer screening program. PROCEDURE INFORMATION: Exam: CT Abdomen And Pelvis Without Contrast Exam date and time: 12/29/2023 8:53 AM Age: 73 years old Clinical indication: Abnormal findings; Abnormal radiologic finding of the abdomen; Abnormal radiologic exam of lung or chest; Patient HX: Bladder cancer; Additional info: Bladder cancer, lung abnormality TECHNIQUE: Imaging protocol: Computed tomography of the abdomen and pelvis without contrast. Radiation optimization: All CT scans at this facility use at least one of these dose optimization techniques: automated exposure control; mA and/or kV adjustment per patient size (includes targeted exams where dose is matched to clinical indication); or iterative reconstruction. COMPARISON: [place] [id number] 05/19/2023 3:43 PM RADIATION DOSE METRICS: Total DLP (mGy-cm): 1112.05 FINDINGS: Lungs: Lung bases are clear as visualized. Liver: Normal. No mass. Gallbladder and biliary ducts: Gallbladder is full of calculi. No intra or extrahepatic biliary dilatation. Pancreas: Normal. No ductal dilation. Spleen: Normal. No splenomegaly. Adrenal glands: Normal. No mass. Kidneys and ureters: Normal. No hydronephrosis. Stomach and bowel: No bowel obstruction, acute inflammation, or mass. Administered enteric contrast transits up to mid small bowel Appendix: Surgical eliu right lower quadrant suggestive of prior appendectomy. Intraperitoneal space: Unremarkable. No free air. No significant fluid collection. Vasculature: Unremarkable. No abdominal aortic aneurysm. Lymph nodes: Unremarkable. No enlarged lymph nodes. Urinary bladder: Moderate circumferential thickening of the bladder again demonstrated similar to prior. No focal bladder nodule or mass. Probably mildly less prominent perivesical fat stranding. Reproductive: Coarse calcifications in the enlarged prostate gland. Bones/joints: Unremarkable. No acute fracture. Soft tissues: Unremarkable. CT/[place] [id number] IMPRESSION: 1. Mild decreased conspicuity of subpleural right lung base pulmonary nodule. No new or enlarging pulmonary nodule or infiltrate is identified. 2. Mild circumferential thickening of the esophagus, as can be seen with esophagitis. IMPRESSION: No evidence of metastatic disease in the abdomen. No acute abnormality. Unchanged moderate circumferential thickening of the bladder, with mild perivesicular stranding. May represent a component of posttreatment change. Recommend correlation if there is concern for superimposed infection.
[2023-12-29] MEDS: iohexol 350 mg/mL 500 mL Btl (per mL) PO (09:03)
== END 2023-12-29 07:43 | disposition home or self-care (01) ==
PROVIDERS: PCP Family Medicine; Visit Provider Radiology Radiation Oncology
DX: C67.9 Malignant neoplasm of bladder, unspecified (principal); K80.20 Calculus of gallbladder without cholecystitis without obstruction; N40.0 Benign prostatic hyperplasia without lower urinary tract symptoms
CPT/HCPCS: 71250; 74176

== ENCOUNTER 2023-12-30 10:16 | Oncology outpatient (recurring) (ONCR) | payer MEDICARE, BC, SELFPAY ==
--- NOTE | 2023-12-30 12:36 | ONCRAD EPV_ITS ---
Radiation Oncology Established Patient Visit Patient: Robni Crystal [id number] : 1950 Age: 73 Sex: Male Dictated by: Dr. Sadiq Dillard Date of Service: 12/30/2023 Referring Physician(s) : Diagnosis: C67.9 - Malignant neoplasm of bladder, unspecified, Diagnosed 12/30/2022 (Active) Radiotherapy to Date: Course: Bladder 2023, Treatment Site: [id number], Ref. ID: [id number], Energy: 15X, Dose/Fx (cGy): 220, #Fx: / , Dose Correction (cGy): 0, Total Dose Delivered (cGy): 5,500, Start Date: 03/31/2023, End Date: 05/05/2023, Elapsed Days: 35 Current History: He is doing well in general. He has occasional burning with urination and some frequency and variable flow. He has no hematuria. He has 1-2 time nocturia. He has good bowel function. Unfortunately continues to smoke 2 packs/day with no interest in quitting. He lives independently with his daughter on [address] [place] and raises many different animals. He is scheduled to see his urologist in follow-up on Thursday, January 04, 2024 for follow-up cystoscopy evaluation. In [facility]. CT scan of the abdomen and pelvis done here on December 29, 2023 was compared to the previous imaging of May 19, 2023 right lung base pleural-based nodule had decreased in size from 9 x 18 mm to 3 x 11 mm there was moderate thickening of the bladder wall with no nodules or masses and no pelvic adenopathy noted. Current Medications: Allergies: No Known Allergies Current Complaints / Review of Systems: . Vital Signs: BMI - 30.556 kg/m2 (high), Height - 73 in, Weight - 231.6 lbs, Temperature - 97.5 f, Pulse - 83 /min, Respiration - 18 /min, O2 Sat - 97 %, Pain - 0, Fatigue - 0 and BP - 145/ 86 mm(hg)(high/). Physical Exam: General: Alert and oriented x 3. No acute distress. Performance Status: ECOG 0 Lab: None pending. Pathology: Primary, c67.9 - malignant neoplasm of bladder, unspecified, Diagnosed 12/30/2022 (active) . Imaging: See HPI Impression: Primary carcinoma of the bladder doing well following transurethral resection of the bladder and follow-up radiation. He has modest urinary symptoms. Follow-up CT scan of the abdomen and pelvis showed no bladder masses or nodules or adenopathy. He will now have ongoing follow-up with his urologist with periodic cystoscopy. He will return here on a as needed basis. I pleaded with him for smoking cessation he has no interest in this. Signed by: 12/30/2023 12:34:56 PM <<Signature on File>> Time spent with patient: CPT Code: CPT Code:
== END 2024-01-07 23:59 | disposition home or self-care (01) ==
LOC: ONCMED 10:17
PROVIDERS: PCP Family Medicine; Visit Provider Radiology Radiation Oncology
DX: C67.9 Malignant neoplasm of bladder, unspecified (principal); R91.1 Solitary pulmonary nodule; F17.210 Nicotine dependence, cigarettes, uncomplicated; Z92.3 Personal history of irradiation; R30.9 Painful micturition, unspecified
CPT/HCPCS: 99213

== ENCOUNTER → 2024-02-16 10:20 | Outpatient (BNVA) | payer MEDICARE, BC, SELFPAY | PROVIDERS: PCP Family Medicine; Visit Provider Family Medicine | DX: I10 Essential (primary) hypertension (principal); R01.1 Cardiac murmur, unspecified; I49.9 Cardiac arrhythmia, unspecified; R30.0 Dysuria; E11.9 Type 2 diabetes mellitus without complications; R73.03 Prediabetes; R53.83 Other fatigue; N18.9 Chronic kidney disease, unspecified | CPT/HCPCS: 80053; 80061; 83036; 84443; 85025 ==

== ENCOUNTER → 2024-03-10 08:42 | Outpatient (BNVA) | payer MEDICARE, BC, SELFPAY | PROVIDERS: PCP Family Medicine; Visit Provider Nurse Practitioner Family | DX: L57.8 Other skin changes due to chronic exposure to nonionizing radiation (principal); L81.4 Other melanin hyperpigmentation; D69.2 Other nonthrombocytopenic purpura; L82.0 Inflamed seborrheic keratosis; L29.89 Other pruritus; L53.8 Other specified erythematous conditions; R20.8 Other disturbances of skin sensation | CPT/HCPCS: 17110; 99213 ==

== ENCOUNTER → 2024-08-16 11:12 | Outpatient (BNVA) | payer MEDICARE, BC, SELFPAY | PROVIDERS: PCP Family Medicine; Visit Provider Family Medicine | DX: I10 Essential (primary) hypertension (principal); N18.9 Chronic kidney disease, unspecified; R73.03 Prediabetes; R53.83 Other fatigue | CPT/HCPCS: 80053; 80061; 83036; 84443; 85025 ==

== ENCOUNTER → 2024-09-01 09:49 | Outpatient (BNVA) | payer MEDICARE, BC, SELFPAY | PROVIDERS: PCP Family Medicine; Visit Provider Nurse Practitioner Family | DX: I78.8 Other diseases of capillaries (principal); L57.8 Other skin changes due to chronic exposure to nonionizing radiation; D22.5 Melanocytic nevi of trunk; L81.4 Other melanin hyperpigmentation; D69.2 Other nonthrombocytopenic purpura; L82.0 Inflamed seborrheic keratosis; L29.89 Other pruritus; R20.9 Unspecified disturbances of skin sensation; R20.8 Other disturbances of skin sensation; L53.8 Other specified erythematous conditions | CPT/HCPCS: 17110; 99213 ==

== ENCOUNTER → 2025-02-16 11:50 | Outpatient (BNVA) | payer MEDICARE, SELFPAY | PROVIDERS: PCP Family Medicine; Visit Provider Family Medicine | DX: Z00.00 Encounter for general adult medical examination without abnormal findings (principal); Z51.81 Encounter for therapeutic drug level monitoring; Z13.6 Encounter for screening for cardiovascular disorders; E55.9 Vitamin D deficiency, unspecified; E11.9 Type 2 diabetes mellitus without complications; E53.8 Deficiency of other specified B group vitamins | CPT/HCPCS: 80053; 80061; 82306; 82607; 83036; 85025 ==